=== PATIENT | male | born 1935 | race Caucasian/White ===

== ENCOUNTER 2021-01-09 16:12 | Outpatient (REF) | payer OTHER, MEDICAID, SELFPAY ==
[2021-01-09 17:56] LABS: Syphilis Screen Nonreactive (Nonreactive)
[2021-01-09 18:02] LABS: Vitamin B12 314 pg/mL (200-900)
[2021-01-10 17:16] LABS: Lyme Abs Screen <0.90 index
== END 2021-01-09 16:13 | disposition home or self-care (01) ==
LOC: HO.LAB 16:12
PROVIDERS: Visit Provider Psychiatry & Neurology Neurology
DX: G30.9 Alzheimer's disease, unspecified (principal)
CPT/HCPCS: 36415; 82607; 86617; 86618; 86780

== ENCOUNTER 2021-01-18 15:55 | Outpatient (REF) | payer OTHER, MEDICAID, SELFPAY ==
--- NOTE | ~2021-01-18 | MR_ITS ---
EXAMINATION: MR BRAIN WITHOUT CONTRAST CLINICAL INFORMATION: Alzheimer's dementia. COMPARISON: None available. TECHNIQUE: MRI of the brain was obtained using routine sequences without contrast. FINDINGS: No focal restricted diffusion is demonstrated to suggest acute or subacute cerebral ischemia. Regions of chronic encephalomalacia of the right frontoparietal lobes, right del real radiata, and right-sided deep nuclei. Peripheral susceptibility artifact consistent with hemosiderin staining in these regions. Exvacuodilatation of the right lateral ventricle. Wallerian degeneration of the right midbrain/maritza. No evidence of acute hemorrhagic products on heme-sensitive imaging. Scattered periventricular, deep white matter, and brainstem T2 FLAIR hyperintensities consistent with moderate underlying microangiopathy. Proportional prominence of the ventricles and sulcal spaces without evidence of obstructive hydrocephalus. No abnormal mass effect. No midline shift. Normal appearance of the pituitary gland. Normal positioning of the cerebellar tonsils. Normal arterial and venous vascular flow voids are present. Normal, homogeneous marrow signal. Mild mucosal thickening of the paranasal sinuses. No signal abnormalities within the mastoids. Bilateral lens extractions. Bilateral buphthalmos. MR/MR head/brain wo con IMPRESSION: 1. No acute intracranial abnormalities. 2. Chronic encephalomalacia of the right frontoparietal lobes, del real radiata, and deep nuclei. 3. Moderate underlying microangiopathy and generalized cerebral volume loss.
== END 2021-01-18 15:56 | disposition home or self-care (01) ==
LOC: HO.MRI 15:55
PROVIDERS: Visit Provider Psychiatry & Neurology Neurology
DX: G30.9 Alzheimer's disease, unspecified (principal); G93.89 Other specified disorders of brain; I73.9 Peripheral vascular disease, unspecified
CPT/HCPCS: 70551

== ENCOUNTER 2021-12-16 12:41 | Emergency (ER) | payer OTHER, MEDICAID, SELFPAY ==
--- NOTE | ~2021-12-16 | XR_ITS ---
EXAMINATION: XR CHEST CLINICAL INFORMATION: Stroke COMPARISON: None TECHNIQUE: Frontal view of the chest was obtained. FINDINGS: Cardiac silhouette is at the upper limits of normal in size. Atherosclerotic disease of the aortic arch. Hypoinflated lungs. Subtle linear opacity left lung base is most suggestive of atelectasis. No lobar consolidation. No pleural effusion or pneumothorax. XR/XR chest 1V IMPRESSION: Hypoinflated lungs with suspected subtle left basilar atelectasis.
--- NOTE | ~2021-12-16 | CT_ITS ---
EXAMINATION: CT HEAD WITHOUT CONTRAST (STROKE PROTOCOL) CLINICAL INFORMATION: Stroke protocol. COMPARISON: MRI of January 18, 2021 TECHNIQUE: Contiguous axial imaging was performed from the skull base to vertex without intravenous administration of contrast. This CT examination was performed using dose optimization techniques as appropriate, variously including the following: *Automated exposure control *Adjustment of mA and/or kV according to patient size (this includes techniques or standardized protocols for targeted exams where dose is matched to indication/reason for exam; i.e. extremities or head) *Use of iterative reconstruction technique DLP: 695 mGy-cm FINDINGS: No intracranial hemorrhage identified. No abnormal extra-axial fluid collection. No significant mass effect or midline structure shift is seen. Guzman to white matter interface is maintained. 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 There is a large amount of periventricular white matter low density consistent with microangiopathy which extends into the centrum semiovale right greater than left. This may be associated with an old right frontal lobe infarct. There is prominence of ventricles, sulci, and cisterns consistent with generalized atrophy. CT/CT head for stroke IMPRESSION: No acute intracranial pathology. Multiple stable ischemic findings. This critical result was discussed with ZAIDA Pruitt at 1:15 PM hours on December 16, 2021. It was ascertained that the content and urgency of the report was understood at the time of direct communication.
--- NOTE | 2021-12-16 12:50 | ECG_ITS ---
Test Reason : fall Blood Pressure : / mmHG Vent. Rate : 066 BPM Atrial Rate : 066 BPM P-R Int : 144 ms QRS Dur : 088 ms QT Int : 378 ms P-R-T Axes : 044 028 022 degrees QTc Int : 396 ms Normal sinus rhythm Normal ECG No previous ECGs available Referred By: Iraida Garibay Electronically Signed By:MADISON HEREDIA
[2021-12-16 12:55] VITALS: BP 144/78; PULSE 64; RESP 17; TEMP 36.9; O2SAT 98; BMI 22.5
[2021-12-16 13:09] LABS: ~PT, ~INR - Anti Coag Clinic 1.1 (0.9-1.1)
[2021-12-16 13:11] LABS: Glucose, Whole Blood 84 mg/dL (60-115)
[2021-12-16 13:26] LABS: MANUAL DIFF FLAG NO
[2021-12-16 13:48] LABS: Basophils Absolute Auto 0.1 X10*3/uL (0.0-0.2); Basophils Percent Auto 0.7 % (0-2); Eosinophils Absolute Auto 0.1 X10*3/uL (0.0-0.4); Eosinophils Percent Auto 1.6 % (0-4); Hematocrit 44.1 % (42.0-52.0); Hemoglobin 14.4 g/dl (14.0-18.0); Imm Gran Abs Auto 0.02 X10*3/uL (0.00-0.03); Imm Gran Pct Auto 0.3 % (0.0-0.4); Lymphocytes Absolute Auto 1.1 X10*3/uL (1.2-4.9); Lymphocytes Percent Auto 15.4 % (20-40); Mean Corpuscular HGB Conc 32.7 g/dl (31.0-36.0); Mean Corpuscular Hemoglobin 28.6 pg (27.0-33.0); Mean Corpuscular Volume 87.5 fL (80.0-98.0); Mean Platelet Volume 10.8 fL (9.4-12.4); Monocytes Absolute Auto 0.7 X10*3/uL (0.1-1.2); Monocytes Percent Auto 9.8 % (2-11); Neutrophils Absolute Auto 5.3 x10*3/uL (2.0-8.3); Neutrophils Percent Auto 72.2 % (45-73); Platelet Count 249 X10*3/uL (160-400); Red Blood Count 5.04 X10*6/uL (4.60-5.80); Red Cell Distribution Width 14.5 % (11.0-16.0); White Blood Count 7.3 X10*3/uL (4.8-10.8)
[2021-12-16 13:50] LABS: Anion Gap 15 (12-20); Blood Urea Nitrogen 16 mg/dL (9-16); Calcium 8.7 mg/dL (8.4-10.2); Carbon Dioxide 24 mmol/L (22-29); Chloride 106 mmol/L (96-108); Creatinine Clr Calc Pharmacy 41.8; Estimated Glomerular Filt Rate > 60; Glucose Random 91 mg/dL (60-115); Potassium 4.5 mmol/L (3.3-5.1); Sodium 140 mmol/L (135-145)
[2021-12-16 13:53] LABS: COVID-19 Test Negative (Negative)
[2021-12-16 13:54] LABS: Prothrombin Time 11.7 SEC (10.0-13.1)
[2021-12-16 13:56] LABS: Troponin-I High Sensitivity < 3.5 ng/L (<3.5-35.0)
[2021-12-16 13:57] LABS: Partial Thromboplastin Time 34.4 SEC (26.0-36.4); Stroke Lab Use COMPLETE
--- NOTE | 2021-12-16 14:17 | ED_ITS ---
HPI - Neuro Symptoms/Deficit General Chief Complaint: Stroke Stated Complaint: STROKE ALERT,NEW CONFUSION,H/O STROKE 2WKS AGO Time Seen by Provider: 12/16/21 12:49 Source: patient, family (Son) and EMS Mode of arrival: EMS Limitations: no limitations History of Present Illness HPI Narrative: 86-year-old male came in for evaluation of stroke. Presented by ambulance for feeling dizzy and passed out last night, patient giving different history, patient's symptoms started since last night, wake up in the morning feeling slightly dizzy but now is improving, no chest pain, no SOB. Patient has no neurological deficit except for left facial droop the patient been having it for many years. Son at the bedside providing more history for the patient, patient is known to have dementia and he does not do well when hospitalized because of the dementia he gets very anxious. 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 Patient is scheduled to see Dr. Farr in a few weeks and PCP. Related Data Home Medications Medication Instructions Recorded Confirmed aspirin 81 mg chewable tablet 1 tab PO DAILY 12/16/21 12/16/21 atorvastatin 80 mg tablet 1 tab PO DAILY 12/16/21 12/16/21 famotidine 40 mg tablet 1 tab PO DAILY 12/16/21 12/16/21 fluoxetine 10 mg capsule 1 cap PO DAILY 12/16/21 12/16/21 olanzapine 2.5 mg tablet 1 tab PO DAILY 12/16/21 12/16/21 quetiapine 25 mg tablet 0.5 tab PO DAILY PRN Agitation 12/16/21 12/16/21 Allergies Allergy/AdvReac Type Severity Reaction Status Date / Time No Known Allergies Allergy Verified 12/16/21 12:50 Review of Systems Review of Systems: All other systems are reviewed and are negative Constitutional: Reports as per HPI and Reports no additional constitutional complaints Eyes: Reports as per HPI and Reports no additional eye complaints Reports system reviewed and no additional complaints, except as documented Cardiovascular: Reports as per HPI and Reports no additional cardiovascular complaints Respiratory: Reports as per HPI and Reports no additional respiratory complaints Gastrointestinal: Reports as per HPI and Reports no additional gastrointestinal complaints Genitourinary: Reports no additional female genitourinary complaints Musculoskeletal: Reports no additional musculoskeletal complaints Skin/Breast: Reports system reviewed and no additional complaints, except as docu Psychiatric: Reports no additional psychiatric complaints Endocrine: Reports no additional endocrine complaints Hematologic/Lymphatic: Reports no additional hematologic/lymphatic complaints Allergic/Immunologic: Reports no additional allergic/immunologic complaints Reports system reviewed and no additional complaints, except as documented and Reports Abnormal speech present FOR[facility]LY [facility], [facility] Social History Social History Advance Directives: Yes Advance Directives on File: Yes Advance Directives Date on File: 12/16/21 Physical Exam Vital Signs: Vital Signs: Last Vital Signs Temp 98.4 F 12/16/21 12:55 Pulse 64 12/16/21 12:55 Resp 17 12/16/21 12:55 BP 144/78 H 12/16/21 12:55 Pulse Ox 98 12/16/21 12:55 O2 Del Method 12/16/21 12:55 BMI result Body Mass Index 22.5 Course Course Course Narrative: 86-year-old male with history of TIA had a recent workup at [facility] reportedly by son patient had blockage in both carotid arteries but no definitive plan to have surgical intervention at this point, no symptoms now, unremarkable CT, able to ambulate steady in the emergency room without concern, as per son patient develops severe anxiety and worsening of his dementia if he get admitted, patient has appointment with his neurologist next week will discharge. MDM - Neuro Symptoms/Deficit Lab Data Attestation: I reviewed the patient's lab results. Result diagrams: 12/16/21 13:19 12/16/21 13:19 Labs: Lab Results 12/16/21 12/16/21 12/16/21 Range/Units 13:01 13:04 13:19 WBC 7.3 (4.8-10.8) X10*3/uL RBC 5.04 (4.60-5.80) X10*6/uL Hgb 14.4 (14.0-18.0) g/dl Hct 44.1 (42.0-52.0) % MCV 87.5 (80.0-98.0) fL MCH 28.6 (27.0-33.0) pg MCHC 32.7 (31.0-36.0) g/dl RDW 14.5 (11.0-16.0) % Plt Count 249 (160-400) X10*3/uL MPV 10.8 (9.4-12.4) fL Immature Gran % (Auto) 0.3 (0.0-0.4) % Neut % (Auto) 72.2 (45-73) % Lymph % (Auto) 15.4 L (20-40) % [place] % (Auto) 9.8 (2-11) % Eos % (Auto) 1.6 (0-4) % Baso % (Auto) 0.7 (0-2) % Lymph # (Auto) 1.1 L (1.2-4.9) X10*3/uL [place] # (Auto) 0.7 (0.1-1.2) X10*3/uL Eos # (Auto) 0.1 (0.0-0.4) X10*3/uL Baso # (Auto) 0.1 (0.0-0.2) X10*3/uL Abs Immat Gran (auto) 0.02 (0.00-0.03) X10*3/uL Absolute Neuts (auto) 5.3 (2.0-8.3) x10*3/uL Absolute Nucleated RBC 0.000 (0.0-0.012) X10*3/uL Nucleated RBC % (auto) 0.0 (0.0-0.2) /100WBC PT (10.0-13.1) SEC Whole Blood PT 13.0 (11.1-13.5) sec INR (0.9-1.1) Whole Blood INR 1.1 (0.9-1.1) APTT (26.0-36.4) SEC Sodium (135-145) mmol/L Potassium (3.3-5.1) mmol/L Chloride (96-108) mmol/L Carbon Dioxide (22-29) mmol/L Anion Gap (12-20) BUN (9-16) mg/dL Creatinine (0.5-1.4) mg/dL Estim Creat Clear Calc Estimated GFR POC Glucose 84 (60-115) mg/dL Random Glucose (60-115) mg/dL Calcium (8.4-10.2) mg/dL Total Creatine Kinase (38-174) U/L Troponin I High Sens (<3.5-35.0) ng/L COVID-19 ([facility]) (Negative) COVID-19 Clin Com 12/16/21 12/16/21 12/16/21 Range/Units 13:19 13:19 13:19 WBC (4.8-10.8) X10*3/uL RBC (4.60-5.80) X10*6/uL Hgb (14.0-18.0) g/dl Hct (42.0-52.0) % MCV (80.0-98.0) fL MCH (27.0-33.0) pg MCHC (31.0-36.0) g/dl RDW (11.0-16.0) % Plt Count (160-400) X10*3/uL MPV (9.4-12.4) fL Immature Gran % (Auto) (0.0-0.4) % Neut % (Auto) (45-73) % Lymph % (Auto) (20-40) % [place] % (Auto) (2-11) % Eos % (Auto) (0-4) % Baso % (Auto) (0-2) % Lymph # (Auto) (1.2-4.9) X10*3/uL [place] # (Auto) (0.1-1.2) X10*3/uL Eos # (Auto) (0.0-0.4) X10*3/uL Baso # (Auto) (0.0-0.2) X10*3/uL Abs Immat Gran (auto) (0.00-0.03) X10*3/uL Absolute Neuts (auto) (2.0-8.3) x10*3/uL Absolute Nucleated RBC (0.0-0.012) X10*3/uL Nucleated RBC % (auto) (0.0-0.2) /100WBC PT 11.7 (10.0-13.1) SEC Whole Blood PT (11.1-13.5) sec INR 1.0 (0.9-1.1) Whole Blood INR (0.9-1.1) APTT 34.4 (26.0-36.4) SEC Sodium 140 (135-145) mmol/L Potassium 4.5 (3.3-5.1) mmol/L Chloride 106 (96-108) mmol/L Carbon Dioxide 24 (22-29) mmol/L Anion Gap 15 (12-20) BUN 16 (9-16) mg/dL Creatinine 1.10 (0.5-1.4) mg/dL Estim Creat Clear Calc 41.8 Estimated GFR > 60 POC Glucose (60-115) mg/dL Random Glucose 91 (60-115) mg/dL Calcium 8.7 (8.4-10.2) mg/dL Total Creatine Kinase 69 (38-174) U/L Troponin I High Sens < 3.5 (<3.5-35.0) ng/L COVID-19 ([facility]) (Negative) COVID-19 Clin Com 12/16/21 Range/Units 13:19 WBC (4.8-10.8) X10*3/uL RBC (4.60-5.80) X10*6/uL Hgb (14.0-18.0) g/dl Hct (42.0-52.0) % MCV (80.0-98.0) fL MCH (27.0-33.0) pg MCHC (31.0-36.0) g/dl RDW (11.0-16.0) % Plt Count (160-400) X10*3/uL MPV (9.4-12.4) fL Immature Gran % (Auto) (0.0-0.4) % Neut % (Auto) (45-73) % Lymph % (Auto) (20-40) % [place] % (Auto) (2-11) % Eos % (Auto) (0-4) % Baso % (Auto) (0-2) % Lymph # (Auto) (1.2-4.9) X10*3/uL [place] # (Auto) (0.1-1.2) X10*3/uL Eos # (Auto) (0.0-0.4) X10*3/uL Baso # (Auto) (0.0-0.2) X10*3/uL Abs Immat Gran (auto) (0.00-0.03) X10*3/uL Absolute Neuts (auto) (2.0-8.3) x10*3/uL Absolute Nucleated RBC (0.0-0.012) X10*3/uL Nucleated RBC % (auto) (0.0-0.2) /100WBC PT (10.0-13.1) SEC Whole Blood PT (11.1-13.5) sec INR (0.9-1.1) Whole Blood INR (0.9-1.1) APTT (26.0-36.4) SEC Sodium (135-145) mmol/L Potassium (3.3-5.1) mmol/L Chloride (96-108) mmol/L Carbon Dioxide (22-29) mmol/L Anion Gap (12-20) BUN (9-16) mg/dL Creatinine (0.5-1.4) mg/dL Estim Creat Clear Calc Estimated GFR POC Glucose (60-115) mg/dL Random Glucose (60-115) mg/dL Calcium (8.4-10.2) mg/dL Total Creatine Kinase (38-174) U/L Troponin I High Sens (<3.5-35.0) ng/L COVID-19 ([facility]BY) Negative (Negative) COVID-19 Clin Com See Note Imaging Data CT scan - head: Attestation: I personally reviewed and interpreted this imaging study as follows: Radiologist's impression: No acute intracranial pathology. ? Multiple stable ischemic findings. ? Chest x-ray: Attestation: I personally reviewed and interpreted this imaging study as follows: Radiologist's impression: Hypoinflated lungs with suspected subtle left basilar atelectasis. ECG Data Attestation: I personally reviewed and interpreted this ECG as follows: Interpretation: Normal sinus rhythm at 66 beats per minutes, normal axis deviation, normal intervals, no ST-T changes. Discharge Plan Discharge Clinical Impression: Dizziness Patient Disposition: Home, Self-Care Instructions: Dizziness (ED) Prescriptions: No Action quetiapine 25 mg tablet 0.5 tab PO DAILY PRN (Reason: Agitation) atorvastatin 80 mg tablet 1 tab PO DAILY famotidine 40 mg tablet 1 tab PO DAILY olanzapine 2.5 mg tablet 1 tab PO DAILY fluoxetine 10 mg capsule 1 cap PO DAILY aspirin 81 mg tablet,chewable 1 tab PO DAILY Referrals: Brooke Coy NP [Primary Care Provider] - Mike Farr MD [Physician] -
[2021-12-16 15:07] VITALS: BP 147/77; PULSE 70; RESP 16; TEMP 37; O2SAT 99
== END 2021-12-16 15:27 | disposition home or self-care (01) ==
PROVIDERS: Emergency Provider Emergency Medicine; PCP Nurse Practitioner Family
DX: R42 Dizziness and giddiness (principal); Z20.822 Contact with and (suspected) exposure to COVID-19; F03.90 Unspecified dementia, unspecified severity, without behavioral disturbance, psychotic disturbance, mood disturbance, and anxiety; F41.9 Anxiety disorder, unspecified; Z86.73 Personal history of transient ischemic attack (TIA), and cerebral infarction without residual deficits
CPT/HCPCS: 36415; 70450; 71045; 80048; 82550; 82947; 84484; 85025; 85610; 85730; 87635; 93005; 99284

== ENCOUNTER 2024-08-13 11:46 | Inpatient (IN) | payer MEDICARE, MEDICAID, SELFPAY ==
[2024-08-13] VITALS (8 sets, daily range): BP systolic 127–145; BP diastolic 56–71; PULSE 67–83; RESP 14–18; TEMP 36.8–37.2; O2SAT 93–97; BMI 28.8
--- NOTE | 2024-08-13 | ECG_ITS ---
Test Reason : GRES Blood Pressure : */* mmHG Vent. Rate : 79 BPM Atrial Rate : 79 BPM P-R Int : 142 ms QRS Dur : 80 ms QT Int : 360 ms P-R-T Axes : 45 56 42 degrees QTcB Int : 412 ms Normal sinus rhythm Normal ECG When compared with ECG of 16-Dec-2021 13:15, No significant change was found Referred By: Generic ED Physician Electronically Signed By: NEGRO TEJEDA
--- NOTE | ~2024-08-13 | XR_ITS ---
CLINICAL HISTORY: fever Single view of the chest. COMPARISON: XR chest dated 08/13/24 at 14:22 EDT FINDINGS: Normal heart size. Atherosclerotic thoracic aorta. Calcified mediastinal lymph nodes. Low lung volumes. Bronchial wall thickening. No pleural effusion. No pneumothorax. No acute fracture. IMPRESSION: 1. Low lung volumes. 2. Bronchial wall thickening. Nonspecific finding can be seen with pulmonary edema or a multifocal infectious or inflammatory process. This document has been electronically signed by: Darwin Ornelas MD on 08/15/2024 16:58:08
--- NOTE | ~2024-08-13 | CT_ITS ---
EXAMINATION: CT CERVICAL SPINE WITHOUT CONTRAST CLINICAL INFORMATION: Injury. COMPARISON: None available. TECHNIQUE: Contiguous axial images through the cervical spine using 3 mm collimation with bone and soft tissue algorithm. Sagittal and coronal reformatted images acquired. This CT examination was performed using dose optimization techniques as appropriate, variously including the following: *Automated exposure control *Adjustment of mA and/or kV according to patient size (this includes techniques or standardized protocols for targeted exams where dose is matched to indication/reason for exam; i.e. extremities or head) *Use of iterative reconstruction technique DLP: 279.86 mGy centimeter. FINDINGS: Craniocervical junction is intact. Trabeculated sclerotic morphology pattern throughout the axial skeleton. Marginal osteophyte formation and subchondral cyst formation decreased intervertebral disc height at C5-6 and C6-7 levels. Facet joint hypertrophy C2-3 to C5-6. Grade 1 anterolisthesis C4-5. C1 is intact. C2 is intact. C3 is intact. Facet joint hypertrophy, bilaterally. C4 is intact. Left-sided facet joint hypertrophy. C5 is intact. Left-sided facet joint hypertrophy. C6 is intact. C7 is intact. No gross prevertebral compartment hematoma. Calcified plaques both carotic arteries. Atrophic/volume loss of the thyroid gland. Postsurgical changes in the right mastoid/petrous bone with a soft tissue attenuation in the residual right tympanic cavity. Soft tissue attenuation in the left tympanic cavity. Secretions within the piriform sinuses. CT/CT cervical spine wo IV con IMPRESSION: No acute fracture or trauma-related listhesis. Concerning multiple myeloma versus lymphoproliferative disorder. Postsurgical changes in the right petrous bone and soft tissue attenuations both tympanic cavities. Cholesteatoma cannot be excluded. Fleischner guidelines were followed. Electronically signed by: Steve Kaba MD 08/13/2024 02:21 PM EDT
--- NOTE | ~2024-08-13 | US_ITS ---
CLINICAL HISTORY: r o DVT Venous duplex ultrasound bilateral lower extremity Comparison: None Findings: The visualized deep veins are fully compressible with normal Doppler color flow and spectral tracings. No popliteal cyst. IMPRESSION: 1. Negative for bilateral lower extremity deep vein thrombosis. This document has been electronically signed by: Manish Kraus MD on 08/13/2024 22:32:44
--- NOTE | ~2024-08-13 | XR_ITS ---
EXAMINATION: XR CHEST CLINICAL INFORMATION: fall COMPARISON: December 16, 2021 TECHNIQUE: Frontal view of the chest was obtained. FINDINGS: Pulmonary reticular pattern. Prominence of the interstitial markings. No gross consolidation, pleural effusion or pneumothorax. Poor inspiration. Arty mediastinal silhouette size is normal. Calcification centered in the thoracic aorta. Degenerative changes in the right shoulder. XR/XR chest 1V IMPRESSION: Mild interstitial edema in the correct clinical settings. Atherosclerosis disease. Electronically signed by: Steve Kaba MD 08/13/2024 02:33 PM EDT
--- NOTE | ~2024-08-13 | XR_ITS ---
EXAMINATION: XR FEMUR, LEFT CLINICAL INFORMATION: fall, hx of surgery at site COMPARISON: None available. TECHNIQUE: AP and lateral views of the left femur were obtained. FINDINGS: No fracture or dislocation. No bone lesion. Coxa valgus. Mild degenerative arthritis in the left hip joint. Complete bony fusion of the left knee joint. No soft tissue abnormalities. XR/XR femur LT 2V IMPRESSION: No acute bony abnormalities. Electronically signed by: Norberto Ruffin MD 08/13/2024 02:43 PM EDT
--- NOTE | ~2024-08-13 | CT_ITS ---
EXAMINATION: CT HEAD WITHOUT CONTRAST CLINICAL INFORMATION: headstrike COMPARISON: December 17, 2019. TECHNIQUE: Contiguous axial imaging was performed from the skull base to vertex without intravenous administration of contrast. This CT examination was performed using dose optimization techniques as appropriate, variously including the following: *Automated exposure control *Adjustment of mA and/or kV according to patient size (this includes techniques or standardized protocols for targeted exams where dose is matched to indication/reason for exam; i.e. extremities or head) *Use of iterative reconstruction technique DLP: 694.04 mGy-cm FINDINGS: Bony calvarium is intact. Skull base is intact. No acute intracranial hemorrhage, mass effect, midline shift, hydrocephalus or herniation. Prominence of the extra-axial CSF spaces along the internal convexities. Prominence of the cerebral sulci, ventricles and perimesencephalic cisterns. Prior vascular insult right basal ganglia/external capsule and del real radiata resulting in volume loss and wallerian degeneration into the right mid brain. Bilateral multifocal patchy and confluent deep periventricular white matter hypodensities involving centrum semiovale and del real radiata. Vascular calcifications V4 segments of the vertebral arteries and the cavernous supracavernous segments both ICAs. 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 Multiple periapical hypodensities along the upper lumbar region of the maxilla and mandible and multiple dental cavities. CT/CT head/brain wo IV con IMPRESSION: No acute fracture, bony calvarium. No acute intracranial hemorrhage. Small vessel occlusive disease. Global cerebral atrophy. Prior vascular insult right MCA lenticular branches. Small chronic subdural hematomas along the hemicranial convexities measuring less than 4 mm cannot be entirely excluded. Poor dilatation with the multiple abscesses and dental cavities. Electronically signed by: Steve Kaba MD 08/13/2024 02:15 PM EDT
[2024-08-13 12:29] LABS: Appearance Urine Cloudy; Color Urine Yellow; Glucose Urine UA Negative (Negative); Leukocyte Esterase Urine Negative (Negative); Nitrite Urine Negative (Negative); PH 5.5 (5.0-9.0); Specific Gravity - Urine 1.025 (1.005-1.025); UMIC TRIGGER UACC YES; Urine Blood Large (3+) (Negative); Urine Ketones Trace mg/dL (Negative); Urine Protein 100 (2+) mg/dL (Neg-Trace)
--- NOTE | 2024-08-13 12:29 | MHC.EDTECH ---
Patient BIBA,changed into hospital attire,patient was incont of a large amount of urine, pt urinated 300MLS of yellow urine in urinal placed pt on the ticket speculator,vitals and EKG taken,labs and urine obtained and sent to lab,call mikael i9n reach
[2024-08-13 12:32] LABS: MANUAL DIFF FLAG NO
[2024-08-13 12:32] LABS: Bacteria Urine None Seen (None Seen); Hyaline Casts Urine 0-2 /LPF (0-2); WBC Urine 0-5 /HPF (0-5)
[2024-08-13 12:35] LABS: Basophils Percent Auto 0.4 % (0-2); Hematocrit 40.7 % (42.0-52.0); Hemoglobin 13.7 g/dl (14.0-18.0); Imm Gran Abs Auto 0.02 X10*3/uL (0.00-0.03); Imm Gran Pct Auto 0.2 % (0.0-0.4); Lymphocytes Absolute Auto 1.4 X10*3/uL (1.2-4.9); Lymphocytes Percent Auto 13.8 % (20-40); Mean Corpuscular HGB Conc 33.7 g/dl (31.0-36.0); Mean Corpuscular Hemoglobin 29.5 pg (27.0-33.0); Mean Corpuscular Volume 87.5 fL (80.0-98.0); Mean Platelet Volume 10.9 fL (9.4-12.4); Monocytes Absolute Auto 1.2 X10*3/uL (0.1-1.2); Monocytes Percent Auto 11.7 % (2-11); Neutrophils Absolute Auto 7.4 x10*3/uL (2.0-8.3); Neutrophils Percent Auto 73.9 % (45-73); Platelet Count 189 X10*3/uL (160-400); Red Blood Count 4.65 X10*6/uL (4.60-5.80); Red Cell Distribution Width 15.1 % (11.0-16.0)
[2024-08-13 12:48] LABS: Alanine Aminotransferase 49 U/L (0-40); Albumin Level 3.6 g/dL (3.5-5.0); Alkaline Phosphatase 99 U/L (39-117); Anion Gap 11 (12-20); Aspartate Amino Transferase 119 U/L (5-37); Bilirubin Total 0.7 mg/dL (0.0-1.0); Blood Urea Nitrogen 27 mg/dL (9-16); Calcium 8.9 mg/dL (8.4-10.2); Carbon Dioxide 27 mmol/L (22-29); Chloride 108 mmol/L (96-108); Creatinine Clr Calc Pharmacy 36.2; Estimated Glomerular Filt Rate > 60; Glucose Random 98 mg/dL (60-115); Magnesium 2.3 mg/dL (1.6-2.6); Potassium 3.8 mmol/L (3.3-5.1); Sodium 142 mmol/L (135-145); Total Protein 6.6 g/dL (6.5-8.0)
--- NOTE | 2024-08-13 13:35 | PC.NURSE ---
Pt. requesting pain medication and that pain patch he has on not working. notified.
[2024-08-13 13:55] LABS: Troponin-I High Sens Reflx 2hr 52.1 ng/L (<3.5-35.0)
[2024-08-13] MEDS: 0.9 % Sodium Chloride 1,000 ML 999 ML IV (14:25)
--- NOTE | 2024-08-13 14:53 | ED.GENADULT ---
HPI - General Adult General Chief complaint: Fall Stated complaint: UNWIT FALL/UNK WHEN,HIT HEAD,-THINNER,+CCOLLAR Time Seen by Provider: 08/13/24 12:59 Source: patient and family History of Present Illness ED Provider: Dann JACOBSEN narrative: 89-year-old with past medical history of dementia and stroke presenting for fall. Patient reportedly fell out of his bed last night and remained on the ground until he was found by MAIL OPENER this morning. Patient is unreliable historian however he is complaining of left leg pain. Patient does have history of surgery at this site and he was a child. Patient's son is at bedside and states there is over 40 hours the MAIL OPENER coverage during the week and he spends a great deal of time with his father as well. He is comfortable taking him home if there are no indications for admission. He is actively working to have patient placed in long-term care facility. He feels that patient is currently at baseline mentation. Related Data Home Medications ?Medication ?Instructions ?Recorded ?Confirmed aspirin 81 mg chewable tablet 1 tab PO DAILY 12/16/21 12/16/21 atorvastatin 80 mg tablet 1 tab PO DAILY 12/16/21 12/16/21 famotidine 40 mg tablet 1 tab PO DAILY 12/16/21 12/16/21 fluoxetine 10 mg capsule 1 cap PO DAILY 12/16/21 12/16/21 olanzapine 2.5 mg tablet 1 tab PO DAILY 12/16/21 12/16/21 quetiapine 25 mg tablet 0.5 tab PO DAILY PRN Agitation 12/16/21 12/16/21 Allergies Allergy/AdvReac Type Severity Reaction Status Date / Time No Known Allergies Allergy Verified 08/13/24 12:06 Review of Systems Review of Systems: Yes all other systems are reviewed and are negative REPLACED BY [facility] Social History Social History Smoked in Last 30 Days: No Use of substances other than those prescribed or required for medical reasons: No Advance Directives: Yes Advance Directives on File: Yes Advance Directives Date on File: 12/16/21 Do you have a plan to hurt others: No Plan Physical Exam ED Vital Signs: Vital Signs - 24 hr 08/13/24 12:04 08/13/24 12:14 08/13/24 14:00 Temperature 98.9 F 98.2 F Pulse Rate 74 79 67 Respiratory Rate 18 14 18 Blood Pressure 133/71 145/64 H Pulse Oximetry 93 94 95 Oxygen Delivery Method Room Air Room Air Room Air 08/13/24 16:00 Temperature Pulse Rate 76 Respiratory Rate 18 Blood Pressure Pulse Oximetry 95 Oxygen Delivery Method Room Air BMI result Body Mass Index 28.8 Well-appearing elderly male in no acute distress Head normocephalic and atraumatic No midline C-spine tenderness to palpation Lungs clear to auscultation bilaterally is unlabored breathing Normal S1-S2 regular rate rhythm Abdomen is soft nontender nondistended Left lower femur tenderness to palpation Medications Administered Discontinued Medications Generic Name Dose Route Start Last Admin Trade Name Freq PRN Reason Stop Dose Admin Sodium Chloride 1,000 mls @ 999 mls/hr 08/13/24 13:30 08/13/24 15:26 Ns IV 08/13/24 14:30 Infused .Q1H1M NATASHA Infusion Sodium Chloride 500 mls @ 500 mls/hr 08/13/24 15:45 08/13/24 17:03 Ns IV 08/13/24 16:44 Infused .Q1H NATASHA Infusion Medical Decision Making Medical Decision Making [facility] Narrative: 89-year-old male presents for fall with prolonged downtime - I am concerned for the following; rhabdo, fracture, head/neck trauma, electrolyte/metabolic disturbance - labs and imaging studies ordered My independent interpretation of labs and imaging: - stable H&H, no white count, elevated CK, mildly elevated LFTs - UA not concerning for UTI - EKG with normal sinus rhythm, no ST elevations, normal QTC - no obvious head bleed or cervical fracture on CT scan; radiology impression notes possible small chronic subdural and no acute cervical fracture - no obvious fracture and femur radiology impression notes no acute bony abnormalities Fluids ordered I am concerned for rhabdomyolysis and while can take 3-5 days for CK to begin to downtrend I wanted to attempt to obtain a down trend to help discharge patient however this did not occur therefore I spoke with the hospitalist who accepted him for admission Lab Data 08/13/24 12:28 08/13/24 12:28 Labs: Lab Results 08/13/24 08/13/24 08/13/24 Range/Units 12:18 12:28 13:22 WBC 10.0 (4.8-10.8) X10*3/uL RBC 4.65 (4.60-5.80) X10*6/uL Hgb 13.7 L (14.0-18.0) g/dl Hct 40.7 L (42.0-52.0) % MCV 87.5 (80.0-98.0) fL MCH 29.5 (27.0-33.0) pg MCHC 33.7 (31.0-36.0) g/dl RDW 15.1 (11.0-16.0) % Plt Count 189 (160-400) X10*3/uL MPV 10.9 (9.4-12.4) fL Immature Gran % (Auto) 0.2 (0.0-0.4) % Neut % (Auto) 73.9 H (45-73) % Lymph % (Auto) 13.8 L (20-40) % [place] % (Auto) 11.7 H (2-11) % Eos % (Auto) 0.0 (0-4) % Baso % (Auto) 0.4 (0-2) % Lymph # (Auto) 1.4 (1.2-4.9) X10*3/uL [place] # (Auto) 1.2 (0.1-1.2) X10*3/uL Eos # (Auto) 0.0 (0.0-0.4) X10*3/uL Baso # (Auto) 0.0 (0.0-0.2) X10*3/uL Abs Immat Gran (auto) 0.02 (0.00-0.03) X10*3/uL Absolute Neuts (auto) 7.4 (2.0-8.3) x10*3/uL Absolute Nucleated RBC 0.000 (0.0-0.012) X10*3/uL Nucleated RBC % (auto) 0.0 (0.0-0.2) /100WBC Sodium 142 (135-145) mmol/L Potassium 3.8 (3.3-5.1) mmol/L Chloride 108 (96-108) mmol/L Carbon Dioxide 27 (22-29) mmol/L Anion Gap 11 L (12-20) BUN 27 H (9-16) mg/dL Creatinine 1.02 (0.5-1.4) mg/dL Estim Creat Clear Calc 36.2 Estimated GFR > 60 Random Glucose 98 (60-115) mg/dL Calcium 8.9 (8.4-10.2) mg/dL Phosphorus 2.8 (2.7-4.5) mg/dL Magnesium 2.3 (1.6-2.6) mg/dL Total Bilirubin 0.7 (0.0-1.0) mg/dL AST 119 H (5-37) U/L ALT 49 H (0-40) U/L Alkaline Phosphatase 99 (39-117) U/L Total Creatine Kinase 4058 H (38-174) U/L Troponin I Hi Sens Base 52.1 H (<3.5-35.0) ng/L Troponin I Hi Sens 2 Hr (<3.5-35.0) ng/L Total Protein 6.6 (6.5-8.0) g/dL Albumin 3.6 (3.5-5.0) g/dL Urine Color Yellow Urine Appearance Cloudy Urine pH 5.5 (5.0-9.0) Ur Specific [place] 1.025 (1.005-1.025) Urine Protein 100 (2+) H (Neg-Trace) mg/dL Urine Glucose (UA) Negative (Negative) mg/dL Urine Ketones Trace (Negative) mg/dL Urine Blood Large (3+) H (Negative) Urine Nitrite Negative (Negative) Ur Leukocyte Esterase Negative (Negative) Urine RBC 6-10 H (0-2) /HPF Urine WBC 0-5 (0-5) /HPF Ur Squamous Epith Cells 3-5 (0-2) /HPF Urine Bacteria None Seen (None Seen) Hyaline Casts 0-2 (0-2) /LPF Influenza Type A (PCR) (Negative) Influenza Type B (PCR) (Negative) RSV RNA Qual (PCR) (Negative) SARS-CoV-2 RNA (RT-PCR) (Negative) 08/13/24 08/13/24 08/13/24 Range/Units 14:40 15:41 17:29 WBC (4.8-10.8) X10*3/uL RBC (4.60-5.80) X10*6/uL Hgb (14.0-18.0) g/dl Hct (42.0-52.0) % MCV (80.0-98.0) fL MCH (27.0-33.0) pg MCHC (31.0-36.0) g/dl RDW (11.0-16.0) % Plt Count (160-400) X10*3/uL MPV (9.4-12.4) fL Immature Gran % (Auto) (0.0-0.4) % Neut % (Auto) (45-73) % Lymph % (Auto) (20-40) % [place] % (Auto) (2-11) % Eos % (Auto) (0-4) % Baso % (Auto) (0-2) % Lymph # (Auto) (1.2-4.9) X10*3/uL [place] # (Auto) (0.1-1.2) X10*3/uL Eos # (Auto) (0.0-0.4) X10*3/uL Baso # (Auto) (0.0-0.2) X10*3/uL Abs Immat Gran (auto) (0.00-0.03) X10*3/uL Absolute Neuts (auto) (2.0-8.3) x10*3/uL Absolute Nucleated RBC (0.0-0.012) X10*3/uL Nucleated RBC % (auto) (0.0-0.2) /100WBC Sodium (135-145) mmol/L Potassium (3.3-5.1) mmol/L Chloride (96-108) mmol/L Carbon Dioxide (22-29) mmol/L Anion Gap (12-20) BUN (9-16) mg/dL Creatinine (0.5-1.4) mg/dL Estim Creat Clear Calc Estimated GFR Random Glucose (60-115) mg/dL Calcium (8.4-10.2) mg/dL Phosphorus (2.7-4.5) mg/dL Magnesium (1.6-2.6) mg/dL Total Bilirubin (0.0-1.0) mg/dL AST (5-37) U/L ALT (0-40) U/L Alkaline Phosphatase (39-117) U/L Total Creatine Kinase 4529 H 4574 H (38-174) U/L Troponin I Hi Sens Base (<3.5-35.0) ng/L Troponin I Hi Sens 2 Hr 47.3 H (<3.5-35.0) ng/L Total Protein (6.5-8.0) g/dL Albumin (3.5-5.0) g/dL Urine Color Urine Appearance Urine pH (5.0-9.0) Ur Specific [place] (1.005-1.025) Urine Protein (Neg-Trace) mg/dL Urine Glucose (UA) (Negative) mg/dL Urine Ketones (Negative) mg/dL Urine Blood (Negative) Urine Nitrite (Negative) Ur Leukocyte Esterase (Negative) Urine RBC (0-2) /HPF Urine WBC (0-5) /HPF Ur Squamous Epith Cells (0-2) /HPF Urine Bacteria (None Seen) Hyaline Casts (0-2) /LPF Influenza Type A (PCR) NEGATIVE (Negative) Influenza Type B (PCR) NEGATIVE (Negative) RSV RNA Qual (PCR) NEGATIVE (Negative) SARS-CoV-2 RNA (RT-PCR) NEGATIVE (Negative) Discharge Plan Discharge Clinical Impression: Rhabdomyolysis Qualifiers: Encounter type: initial encounter Patient Disposition: Admitted As Inpatient Print Language: Romanian
[2024-08-13 15:23] LABS: Influenza A PCR NEGATIVE (Negative); Influenza B PCR NEGATIVE (Negative); Resp Syncy Virus RNA Qual PCR NEGATIVE (Negative); SARS COV2 PCR INHOUSE NEGATIVE (Negative)
--- OUTSIDE RECORDS SUMMARY | 2024-08-13 15:29 | XMS_ITS | Clinical Summary ---
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 Name Role Phone Unavailable Primary Care Provider Unavailabl e Social History Tobacco Use Types Packs/Day Years Used Date Smoking Tobacco: Never Assessed Sex and Gender Information Value Date Recorded Sex Assigned at Not on file Legal Sex Male 11:56 AM EDT Gender Identity Not on file Sexual Orientation Not on file Plan of Treatment Health Maintenance Due Date Last Done Comments DTaP/Tdap/Td Vaccines (1 - Tdap) 1954 Pneumococcal Vaccines 50+ (1 of 1 - PCV) 1985 Zoster (Shingles) Vaccine (1 of 2) 1985 RSV Vaccine 60 years and old er and Patients (1 - 1-dose 75+ series) 2010 COVID-19 Vaccine ( - 2023-2 5 season) 2023 Hepatitis B Vaccines Aged Out No long er eligible based on patient's age to complete this topic
[2024-08-13 15:35] LABS: Reflex Trop? Y
[2024-08-13] MEDS: 0.9 % Sodium Chloride 500 ML IV (16:03)
[2024-08-13 16:05] LABS: zTroponin-I High Sen Reflex #2 47.3 ng/L (<3.5-35.0)
[2024-08-13 16:43] LABS: Phosphorus 2.8 mg/dL (2.7-4.5)
--- NOTE | 2024-08-13 20:37 | P.HPHOSP_ITS ---
History of Present Illness Date of Service: 08/13/24 Attending physician on admission: Devon Corbin Chief Complaint: fall Patient is an 89-year-old male with a past medical history significant for history stroke, dementia, CAD and mood disorder, presented to the ED after a fall. The downtime is unclear however it is suspected that he fell last night and was found by his HEAD OF ART this morning. The patient reported a head strike but no loss of consciousness. He was found on the floor and crawled to his bathroom. 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 He also has bruising on the right side of his head. The patient was unable to give me any history due to his dementia, I attempted to call the son for classification however he did not answer. The above history is obtained from the ED provider. Review of Systems 2 Review of Systems: Yes Unobtainable due to mental status PMFSH Medical History (Updated 08/13/24 @ 20:44 by Darlene Wright PA-C) Mood disorder CAD (coronary artery disease) History of CVA (cerebrovascular accident) Dementia Social History Smoked in Last 30 Days: No Use of substances other than those prescribed or required for medical reasons: No Advance Directives: Yes Advance Directives on File: Yes Advance Directives Date on File: 12/16/21 Do you have a plan to hurt others: No Plan Meds Allergies Allergy/AdvReac Type Severity Reaction Status Date / Time No Known Allergies Allergy Verified 08/13/24 12:06 Home Medications ?Medication ?Instructions ?Recorded ?Confirmed ?Last Taken ?Type aspirin 81 mg chewable tablet 1 tab PO DAILY 12/16/21 12/16/21 Unknown History atorvastatin 80 mg tablet 1 tab PO DAILY 12/16/21 08/13/24 Unknown History famotidine 40 mg tablet 1 tab PO DAILY 12/16/21 08/13/24 Unknown History mirtazapine 15 mg tablet 15 mg PO DAILY 08/13/24 08/13/24 Unknown History quetiapine 25 mg tablet 25 mg PO BEDTIME 08/13/24 08/13/24 Unknown History Physical Exam 2 Vital Signs and Narrative: Vital Signs: Last Vital Signs Temp 98.2 F 08/13/24 14:00 Pulse 76 08/13/24 16:00 Resp 18 08/13/24 16:00 BP 145/64 H 08/13/24 14:00 Pulse Ox 95 08/13/24 16:00 O2 Del Method Room Air 08/13/24 16:00 BMI result Body Mass Index 28.8 General: Alert, oriented to person but not place or time. does not answer questions appropriately. no acute distress Resp: CTA bilaterally CVS: S1, S2, RRR GI: +BS, NT, no distention Skin: Warm, dry Neuro: Cranial nerves II-XII grossly intact bilaterally. Motor grossly intact bilaterally Extremities: No LE edema Psych: does not answer questions appropriately Results Labs 08/13/24 12:28 08/13/24 12:28 Labs: Laboratory Results - last 24 hr 08/13/24 08/13/24 08/13/24 12:18 12:28 13:22 MCV 87.5 MCH 29.5 MCHC 33.7 RDW 15.1 Plt Count 189 MPV 10.9 Immature Gran % (Auto) 0.2 Neut % (Auto) 73.9 H Lymph % (Auto) 13.8 L [place] % (Auto) 11.7 H Eos % (Auto) 0.0 Baso % (Auto) 0.4 Lymph # (Auto) 1.4 [place] # (Auto) 1.2 Eos # (Auto) 0.0 Baso # (Auto) 0.0 Abs Immat Gran (auto) 0.02 Absolute Neuts (auto) 7.4 Absolute Nucleated RBC 0.000 Nucleated RBC % (auto) 0.0 Anion Gap 11 L Estim Creat Clear Calc 36.2 Estimated GFR > 60 Random Glucose 98 Calcium 8.9 Phosphorus 2.8 Magnesium 2.3 Total Bilirubin 0.7 AST 119 H ALT 49 H Alkaline Phosphatase 99 Total Creatine Kinase 4058 H Troponin I Hi Sens Base 52.1 H Troponin I Hi Sens 2 Hr Total Protein 6.6 Albumin 3.6 Urine Color Yellow Urine Appearance Cloudy Urine pH 5.5 Ur Specific [place] 1.025 Urine Protein 100 (2+) H Urine Glucose (UA) Negative Urine Ketones Trace Urine Blood Large (3+) H Urine Nitrite Negative Ur Leukocyte Esterase Negative Urine RBC 6-10 H Urine WBC 0-5 Ur Squamous Epith Cells 3-5 Urine Bacteria None Seen Hyaline Casts 0-2 Influenza Type A (PCR) Influenza Type B (PCR) RSV RNA Qual (PCR) SARS-CoV-2 RNA (RT-PCR) 08/13/24 08/13/24 08/13/24 14:40 15:41 17:29 MCV MCH MCHC RDW Plt Count MPV Immature Gran % (Auto) Neut % (Auto) Lymph % (Auto) [place] % (Auto) Eos % (Auto) Baso % (Auto) Lymph # (Auto) [place] # (Auto) Eos # (Auto) Baso # (Auto) Abs Immat Gran (auto) Absolute Neuts (auto) Absolute Nucleated RBC Nucleated RBC % (auto) Anion Gap Estim Creat Clear Calc Estimated GFR Random Glucose Calcium Phosphorus Magnesium Total Bilirubin AST ALT Alkaline Phosphatase Total Creatine Kinase 4529 H 4574 H Troponin I Hi Sens Base Troponin I Hi Sens 2 Hr 47.3 H Total Protein Albumin Urine Color Urine Appearance Urine pH Ur Specific [place] Urine Protein Urine Glucose (UA) Urine Ketones Urine Blood Urine Nitrite Ur Leukocyte Esterase Urine RBC Urine WBC Ur Squamous Epith Cells Urine Bacteria Hyaline Casts Influenza Type A (PCR) NEGATIVE Influenza Type B (PCR) NEGATIVE RSV RNA Qual (PCR) NEGATIVE SARS-CoV-2 RNA (RT-PCR) NEGATIVE Imaging Radiologist's Impressions: Impressions Chest X-Ray 08/13/24 13:10 IMPRESSION: Mild interstitial edema in the correct clinical settings. Atherosclerosis disease. Electronically signed by: Steve Kaba MD 08/13/2024 02:33 PM EDT RP Cervical Spine CT 08/13/24 13:32 IMPRESSION: No acute fracture or trauma-related listhesis. Concerning multiple myeloma versus lymphoproliferative disorder. Postsurgical changes in the right petrous bone and soft tissue attenuations both tympanic cavities. Cholesteatoma cannot be excluded. Fleischner guidelines were followed. Electronically signed by: Steve Kaba MD 08/13/2024 02:21 PM EDT RP Head CT 08/13/24 13:32 IMPRESSION: No acute fracture, bony calvarium. No acute intracranial hemorrhage. Small vessel occlusive disease. Global cerebral atrophy. Prior vascular insult right MCA lenticular branches. Small chronic subdural hematomas along the hemicranial convexities measuring less than 4 mm cannot be entirely excluded. Poor dilatation with the multiple abscesses and dental cavities. Electronically signed by: Steve Kaba MD 08/13/2024 02:15 PM EDT RP Femur X-Ray 08/13/24 13:38 IMPRESSION: No acute bony abnormalities. Electronically signed by: Norberto Ruffin MD 08/13/2024 02:43 PM EDT RP Assessment and Plan (1) Rhabdomyolysis: Qualifiers: Encounter type: initial encounter Status: Acute (2) Fall: Status: Acute (3) Elevated LFTs: Status: Acute (4) Abnormal CT of spine: Status: Acute Plan Patient is an 89-year-old male with a past medical history significant for history stroke, dementia, CAD and mood disorder, presented to the ED after a fall. Down time is unknown. Patient is unable to give history and son is not reachable. History given from ED provider. Rhabdomyolysis secondary to fall - WBC normal, vitals stable, no sign of active infection - UA negative - COIVD/flu/RSV negative - EKG normal - trop elevated x2 but flat, likely due to rhabdo - head CT with no acute fracture, bony calvarium. No acute intracranial hemorrhage. Small vessel occlusive disease. Global cerebral atrophy. Prior vascular insult right MCA. Small chronic subdural hematomas along the hemicranial convexities measuring less than 4 mm. Poor dilatation with multiple abscesses and dental cavities. - cervical spine CT without acute fracture or trauma related listhesis. Concerning multiple myeloma versus lymphoma proliferative disorder. Postsurgical changes in the right petrous bone and soft tissue attenuation in both tympanic cavities. Cholesteatoma can not be excluded. - chest x-ray negative - left femur x-ray negative for acute bony abnormalities - CPK 4529, 4527 after 1.5L NS in ED, continue LR 80ml/hr - check orthostatics - B LE venous dopplar to r/o DVT as downtime is unknown - failed bedside swallow with RN - PT/COLLEGE PHYSICS INSTRUCTOR eval - follow CPK and lytes elevated LFTs - likely secondary to rhabdo - follow CMP abnormal CT c-spine - cervical spine CT without acute fracture or trauma related listhesis. Concerning multiple myeloma versus lymphoma proliferative disorder. Postsurgical changes in the right petrous bone and soft tissue attenuation in both tympanic cavities. Cholesteatoma can not be excluded. - SPEP and serum immunofixation - heme/onc consult - cholesteatoma unlikley, pt not complaining of ear pain and no fever or leukocytosis dental abscesses/cavities - no leukocytosis, no fever, not complaining of tooth pain - f/u outpt with dentist Dementia/mood disorder - continue mirtazepine and quetiapine when appropriate CAD - continue statin when appropraite DNR/DNI per pt's son VTE prophy: lovenox Patient with unwitnessed fall for unknown period of time complicated by rhabdomyolysis, requiring admission for at least 2 midnights stay for IV fluids, further evaluation and monitoring. Quality Stroke Does the patient have a stroke diagnosis?: No VTE Prior VTE?: No VTE Risk Level:: Medical - moderate - high VTE Device Contraindication: Treatment Not Indicated VTE Drug Contraindication: N/A - Med Ordered
--- NOTE | 2024-08-13 20:44 | PHA.MEDREC ---
Addendum entered by Marcela Menchaca [facility] 08/13/24 22:13: Reviewed by [facility] Addendum entered by Ruma Aponte 08/13/24 22:09: Patient son called back and confirm med list with nurse. Updated med list with changes. Son confirmed Atorvastatin 80 mg QHS, Famotidine 40 mg QHS, Mitrazepine 15 mg QHS, and Quetiapine 25 QHS. Patient is not taking any Aspirin 81 mg. Addendum entered by Syed Ward, [facility] 08/13/24 20:54: MED REC CHECKED BY [facility] Original Note: Pharmacy Consult ? Medication Reconciliation Pharmacy has completed the medication reconciliation. Patient is AMS. Called contacts on file and left a message. Utilized claims to confirm med list. will update med rec if family calls back with any changes.
[2024-08-13] MEDS: Lactated Ringers 1,000 ML 80 ML IVCONT (21:33)
--- NOTE | 2024-08-13 21:40 | PC.NURSE ---
Attempted to try and do a swallow eval on pt. pt. quickly started coughing. Informed Darlene CERDA, whom is going to place NPO orders and speech eval.
[2024-08-13] MEDS: Enoxaparin Sodium 40 MG/0.4 ML SYRINGE SUBCUT (22:04)
--- NOTE | 2024-08-13 23:56 | PC.NURSE ---
Report taken from Dana CORONADO assumed care of pt at 2300. Pt alert confused at baseline secondary dementia. Skin pale warm and dry. VSS. LR infusing at 80ml/hr without difficulty. Male purwick in place. Awaiting bed assignment for admission, aware of plan of care. Will continue to monitor.
[2024-08-14] VITALS (8 sets, daily range): BP systolic 102–171; BP diastolic 55–84; PULSE 70–90; RESP 15–20; TEMP 36.3–37.1; O2SAT 92–95; BMI 24.6
[2024-08-14] MEDS: 0.9 % Sodium Chloride Flush 3 ML SYRINGE IVFLUSH ×3 (00:25→14:23)
--- NOTE | 2024-08-14 07:19 | PC.NURSE ---
Physical therapist found pt purewick on the floor,Camera placed in patient room,VMT notified ,no room available in VMT at this time ,will activate when space available
[2024-08-14] MEDS: Lactated Ringers 1,000 ML 80 ML IVCONT ×2 (10:17→22:40)
--- NOTE | 2024-08-14 10:41 | MHC.CM.PN ---
PATIENT UNABLE TO PARTICIPATE IN MEANINGFUL CONVERSATION. CALL TO HCP/SON, SILVINO, WHO STATES THAT PATIENT LIVES ALONE, AND HAS 42 HOURS OF CAREGIVER SERVICES IN THE HOME. SON PLANS TO TAKE MONTH OF SEPTEMBER OFF TO FIX PATIENT'S HOME AND SELL, TO PAY FOR LTC. HE IS AWARE BECAUSE PATIENT FELL AND CAME TO [facility], REFERRALS NEED TO BE MADE SILVINO STATES THAT HE HAS STARTED THE PLAN FOR LTC TO [facility], [facility], AND [facility]. SILVINO GIVES PERMISSION FOR REFERRALS TO START HERE. IMM DISCUSSED AND ORIGINAL TO BE MAILED TO SON AT ADDRESS ON FILE. RN FOR PATIENT RECEIVED A CALL FROM SON, WHO NOW SAYS HE WISHES TO TAKE PATIENT HOME EVEN IF THIS MEANS WE NEED 24 HOUR CARE . IMM 08/14 IN CHART HCP IN [facility].
--- NOTE | 2024-08-14 10:49 | MHC.CM.PN ---
PCP IS REPORTED TO BE MARCUS WHEELER, OF [facility].
--- NOTE | 2024-08-14 12:51 | MHC.SL.SWA ---
Speech Pathologist Impression: Risk of Aspiration, Oropharyngeal Dysphagia Risk of Aspiration Due to: Neurological Condition Reduced Cognition Dysphasia Diet Status: Upgrade from NPO, start on NDD2/HTL Liquid Consistency and Strategies for Safe Swallow: Liquid Intake Recommendation: Honey Thick Liquid Intake Strategies: Small Sips No Straws Solid Food Consistency: Dietary Recommendations: Grnd/Mech Altered (NDD2) Additional Modifications to Solid Foods: Patient w/ immediate wet, gurgly cough on trials of thin liquid given by teaspoon. He tolerated soft solids and thickened juice, presents with prolonged oral phase, slowed mastication, delayed swallow, incomplete laryngeal elevation, and a tendency to pocket food. Recommend GROUND/MECH ALTERED (NDD2) solids and HONEY THICK liquids, pills CRUSHED in PUREE. Liquids to be given via teaspoon or controlled cup sips only, avoid the use of straws. Give small bites, allow ample time for patient to chew and clear the oral cavity. Moisten food with sauces/gravies, check for any pocketing and clear residue with sips of liquid. Patient will need 1:1 assistance feeding. Oral Medication Intake: Crushed with Puree Please contact the pharmacy regarding appropriate crushable or liquid drug formulations that are available whenever modified delivery is recommended. Compensatory Strategies and Precautions to be Taken for Safe Swallow: Sitting Upright (90 deg) Double Swallow No Straw Small Bites and Sips Alternate Liquids/Solids Rate of Ingestion Change Oral Check Supervision While Eating and Drinking for Safe Swallow: Total Assistance (1:1) Swallowing Recommended Treatments: Compens. Strategy Educat. Recommendation for Speech: Inpatient Speech Therapy Timeline to reassess: PRN Sheet Manager Clinican/Clinical Fellow: No Supervisory Statement: I have reviewed and agree with the student/clinical fellow's documentation: N/A Speech Language Pathologist: Darshana Walker M.A., CCC-MOTORIZED SQUAD SERGEANT
--- NOTE | 2024-08-14 13:43 | P.PNIM_ITS ---
Subjective Subjective Date of Service: 08/14/24 Interval History: Seen and examined this morning Follow-up for fall, mild rhabdo pt with dementia, no oriented, not able to obtain history Refused vital signs and blood work this morning Review of Systems Unable to obtain review of systems Physical Exam 2 Vital Signs: Vital Signs: Last Vital Signs Temp 98.3 F 08/14/24 11:54 Pulse 70 08/14/24 11:54 Resp 16 08/14/24 11:54 BP 149/65 H 08/14/24 11:54 Pulse Ox 92 08/14/24 11:54 O2 Del Method Room Air 08/14/24 11:54 BMI result Body Mass Index 24.6 Const: Other: Currently patient comfortable and cooperative, sitting up in bed, answering some questions. Not oriented. Awake, alert HEENT: Other: attempted to examined mouth, patient would not open mouth Resp: Effort & Inspection: normal respiratory effort, able to speak in complete sentences, no respiratory distress and no use of accessory muscles Cardio: Rate: regular rate Neuro: Other: Grossly nonfocal, moving all extremities Extrem: General: Yes no pedal edema Objective Data Active Medications Acetaminophen (Acetaminophen 325 Mg Tablet) 975 mg PO Q6H PRN PRN Reason: Pain, Mild 1-3,fever,headache Calcium Carbonate (Calcium Carbonate 750 Mg Tab.Chew) 750 mg PO Q4H PRN PRN Reason: Heartburn Enoxaparin Sodium (Enoxaparin Sodium 40 Mg/0.4 Ml Syringe) 40 mg SUBCUT Q24H COUNT INCLUDES [facility] Last Admin: 08/13/24 22:04 Dose: 40 mg Documented By: TRACY Lactated Ringer's (Lr) 1,000 mls @ 80 mls/hr IVCONT .[id number] COUNT INCLUDES [facility] Last Admin: 08/14/24 10:17 Dose: 80 mls/hr Documented By: BILLY Magnesium Hydroxide (Milk Of Magnesia 30 Ml Oral.Susp) 30 ml PO DAILY PRN PRN Reason: Constipation Melatonin (Melatonin 3 Mg Tablet) 6 mg PO BEDTIME PRN PRN Reason: Insomnia Ondansetron HCl (Ondansetron Hcl 4 Mg/2 Ml Vial) 4 mg IVPUSH Q8H PRN PRN Reason: Nausea and Vomiting Oxycodone HCl (Oxycodone Hcl Immed Release 5 Mg Tablet) 5 mg PO Q6H PRN PRN Reason: Pain, Moderate(Pain Scale 4-6) Sodium Chloride (0.9 % Sodium Chloride Flush 3 Ml Syringe) 3 ml IVFLUSH QSHIFT [facility]AS[facility] Last Admin: 08/14/24 08:27 Dose: 3 ml Documented By: BILLY Labs 08/13/24 12:28 08/13/24 12:28 Labs: Laboratory Results - last 24 hr 08/13/24 08/13/24 08/13/24 12:28 13:22 14:40 Phosphorus 2.8 Total Creatine Kinase Troponin I Hi Sens Base 52.1 H Troponin I Hi Sens 2 Hr Influenza Type A (PCR) NEGATIVE Influenza Type B (PCR) NEGATIVE RSV RNA Qual (PCR) NEGATIVE SARS-CoV-2 RNA (RT-PCR) NEGATIVE 08/13/24 08/13/24 15:41 17:29 Phosphorus Total Creatine Kinase 4529 H 4574 H Troponin I Hi Sens Base Troponin I Hi Sens 2 Hr 47.3 H Influenza Type A (PCR) Influenza Type B (PCR) RSV RNA Qual (PCR) SARS-CoV-2 RNA (RT-PCR) Assessment and Plan (1) Dementia: Status: Acute (2) Rhabdomyolysis: Status: Acute Plan This is an 89-year-old male with a past medical history significant for history stroke, dementia, CAD and mood disorder, presented to the ED after a fall. Down time is unknown Rhabdomyolysis secondary to fall trop elevated x2 but flat, likely due to rhabdo trend cpk; pt refused labs today, will re-attempt this afternoon continue gentle IVF Fall, unwitnessed PT eval prior to d/c dysphagia failed bedside swallow with RN Seen by speech, recommended NDD 2 diet with honey thick liquids elevated LFTs likely secondary to rhabdo follow LFTs in am abnormal CT c-spine imaging Concerning multiple myeloma versus lymphoma proliferative disorder. SPEP and serum immunofixation heme/onc consult cholesteatoma unlikely, pt not complaining of ear pain and no fever or leukocytosis can consider outpatient f/u dental abscesses/cavities no leukocytosis, no fever, not reliable historian unable examine mouth due to lack of patient cooperation will start IV Zosyn, can be transitioned to oral Augmentin when able to consistently tolerate diet will need outpatient f/u with dentist Dementia/mood disorder continue mirtazepine and quetiapine CAD Hold statin for rhabdo/elevated LFTs DNR/DNI per pt's son VTE prophy: lovenox dispo: rec home with 12/11 care Patient requires ongoing inpatient stay for monitoring of LFTs and CPK, IV fluid, assessment of tolerating diet Quality Stroke Does the patient have a stroke diagnosis?: No VTE Prior VTE?: No VTE Risk Level:: Medical - moderate - high VTE Device Contraindication: Treatment Not Indicated VTE Drug Contraindication: N/A - Med Ordered
[2024-08-14] MEDS: Ampicillin Sodium/Sulbactam Na 3 GM in 0.9 % Sodium Chloride 100 ML IV ×2 (14:23→20:06)
[2024-08-14 15:49] LABS: Hematocrit 36.9 % (42.0-52.0); Hemoglobin 12.1 g/dl (14.0-18.0); Mean Corpuscular HGB Conc 32.8 g/dl (31.0-36.0); Mean Corpuscular Hemoglobin 28.9 pg (27.0-33.0); Mean Corpuscular Volume 88.1 fL (80.0-98.0); Mean Platelet Volume 11.1 fL (9.4-12.4); Platelet Count 180 X10*3/uL (160-400); Red Blood Count 4.19 X10*6/uL (4.60-5.80); Red Cell Distribution Width 15.1 % (11.0-16.0); White Blood Count 5.4 X10*3/uL (4.8-10.8)
[2024-08-14 16:15] LABS: Alanine Aminotransferase 47 U/L (0-40); Albumin Level 2.9 g/dL (3.5-5.0); Alkaline Phosphatase 80 U/L (39-117); Anion Gap 12 (12-20); Aspartate Amino Transferase 134 U/L (5-37); Bilirubin Total 0.7 mg/dL (0.0-1.0); Blood Urea Nitrogen 21 mg/dL (9-16); Carbon Dioxide 22 mmol/L (22-29); Chloride 112 mmol/L (96-108); Creatinine Clr Calc Pharmacy 38.7; Estimated Glomerular Filt Rate > 60; Glucose Random 127 mg/dL (60-115); Potassium 3.5 mmol/L (3.3-5.1); Sodium 142 mmol/L (135-145); Total Protein 5.5 g/dL (6.5-8.0)
[2024-08-14] MEDS: Famotidine 20 MG TABLET 40 MG PO (20:41)
[2024-08-14] MEDS: Mirtazapine 15 MG TABLET PO (20:41)
[2024-08-14] MEDS: Enoxaparin Sodium 40 MG/0.4 ML SYRINGE SUBCUT (20:41)
[2024-08-14] MEDS: QUEtiapine Fumarate 25 MG TABLET PO (20:41)
[2024-08-15] VITALS (9 sets, daily range): BP systolic 107–175; BP diastolic 54–83; PULSE 65–87; RESP 16–17; TEMP 36.3–38.7; O2SAT 88–92
[2024-08-15] MEDS: Ampicillin Sodium/Sulbactam Na 3 GM in 0.9 % Sodium Chloride 100 ML IV ×4 (02:00→19:49)
[2024-08-15 06:27] LABS: Hematocrit 37.8 % (42.0-52.0); Hemoglobin 12.5 g/dl (14.0-18.0); Mean Corpuscular HGB Conc 33.1 g/dl (31.0-36.0); Mean Corpuscular Hemoglobin 28.9 pg (27.0-33.0); Mean Corpuscular Volume 87.3 fL (80.0-98.0); Mean Platelet Volume 10.5 fL (9.4-12.4); Platelet Count 176 X10*3/uL (160-400); Red Blood Count 4.33 X10*6/uL (4.60-5.80); White Blood Count 5.9 X10*3/uL (4.8-10.8)
[2024-08-15 06:48] LABS: Alanine Aminotransferase 41 U/L (0-40); Anion Gap 15 (12-20); Aspartate Amino Transferase 114 U/L (5-37); Bilirubin Direct 0.2 mg/dL (0.0-0.5); Bilirubin Total 0.6 mg/dL (0.0-1.0); Blood Urea Nitrogen 17 mg/dL (9-16); Calcium 7.9 mg/dL (8.4-10.2); Carbon Dioxide 21 mmol/L (22-29); Chloride 112 mmol/L (96-108); Creatinine Clr Calc Pharmacy 39.7; Estimated Glomerular Filt Rate > 60; Glucose Random 100 mg/dL (60-115); Potassium 3.7 mmol/L (3.3-5.1); Sodium 144 mmol/L (135-145); Total Protein 5.6 g/dL (6.5-8.0)
[2024-08-15 07:18] LABS: Alkaline Phosphatase 81 U/L (39-117)
[2024-08-15] MEDS: Lactated Ringers 1,000 ML 80 ML IVCONT ×2 (10:54→23:21)
[2024-08-15] MEDS: Acetaminophen 325 MG TABLET 975 MG PO (12:39)
--- NOTE | 2024-08-15 14:28 | HO.PM.IMPN ---
Subjective Subjective Date of Service: 08/15/24 Interval History: Seen and examined this morning Follow-up for fall, mild rhabdo pt with dementia, no oriented, not able to obtain history Review of Systems Unable to obtain review of systems Physical Exam Vital Signs: Vital Signs: Last Vital Signs Temp 101.6 F H 08/15/24 13:39 Pulse 77 08/15/24 12:00 Resp 16 08/15/24 12:00 BP 154/70 H 08/15/24 12:00 Pulse Ox 88 L 08/15/24 12:00 O2 Del Method Room Air 08/15/24 12:00 BMI result Body Mass Index 24.6 Appearing in no acute distress lung sounds are clear to auscultation heart regular rate rhythm, clear S1, S2 positive bowel sounds, abdomen is soft, nontender neuro patient is alert x3, no focal deficits Objective Data Active Medications Acetaminophen (Acetaminophen 325 Mg Tablet) 975 mg PO Q6H PRN PRN Reason: Pain, Mild 1-3,fever,headache Last Admin: 08/15/24 12:39 Dose: 975 mg Documented By: CYNTHIA Acetaminophen (Acetaminophen Supp 650 Mg Supp.Rect) 650 mg [place] Q6H PRN PRN Reason: Fever Calcium Carbonate (Calcium Carbonate 750 Mg Tab.Chew) 750 mg PO Q4H PRN PRN Reason: Heartburn Enoxaparin Sodium (Enoxaparin Sodium 40 Mg/0.4 Ml Syringe) 40 mg SUBCUT Q24H [facility] Last Admin: 08/14/24 20:41 Dose: 40 mg Documented By: ROSA Famotidine (Famotidine 20 Mg Tablet) 40 mg PO BEDTIME [facility] Last Admin: 08/14/24 20:41 Dose: 40 mg Documented By: ROSA Lactated Ringer's (Lr) 1,000 mls @ 80 mls/hr IVCONT .[id number] [facility] Last Admin: 08/15/24 10:54 Dose: 80 mls/hr Documented By: CYNTHIA Ampicillin Sodium/Sulbactam (Sodium 3 gm/ Sodium Chloride) 100 mls @ 200 mls/hr IV Q6H [facility] Last Infusion: 08/15/24 14:09 Dose: Infused Documented By: CYNTHIA Magnesium Hydroxide (Milk Of Magnesia 30 Ml Oral.Susp) 30 ml PO DAILY PRN PRN Reason: Constipation Melatonin (Melatonin 3 Mg Tablet) 6 mg PO BEDTIME PRN PRN Reason: Insomnia Mirtazapine (Mirtazapine 15 Mg Tablet) 15 mg PO BEDTIME [facility] Last Admin: 08/14/24 20:41 Dose: 15 mg Documented By: ROSA Ondansetron HCl (Ondansetron Hcl 4 Mg/2 Ml Vial) 4 mg IVPUSH Q8H PRN PRN Reason: Nausea and Vomiting Oxycodone HCl (Oxycodone Hcl Immed Release 5 Mg Tablet) 5 mg PO Q6H PRN PRN Reason: Pain, Moderate(Pain Scale 4-6) Quetiapine Fumarate (Quetiapine Fumarate 25 Mg Tablet) 25 mg PO BEDTIME [facility] Last Admin: 08/14/24 20:41 Dose: 25 mg Documented By: ROSA Sodium Chloride (0.9 % Sodium Chloride Flush 3 Ml Syringe) 3 ml IVFLUSH QSHIFT [facility] Last Admin: 08/15/24 07:39 Dose: Not Given Documented By: CYNTHIA Non-Admin Reason: IV Running Labs 08/15/24 06:11 08/15/24 06:11 Labs: Laboratory Results - last 24 hr 08/14/24 08/15/24 15:19 06:11 MCV 88.1 87.3 MCH 28.9 28.9 MCHC 32.8 33.1 RDW 15.1 15.0 Plt Count 180 176 MPV 11.1 10.5 Absolute Nucleated RBC 0.000 0.000 Nucleated RBC % (auto) 0.0 0.0 Anion Gap 12 15 Estim Creat Clear Calc 38.7 39.7 Estimated GFR > 60 > 60 Random Glucose 127 H 100 Calcium 8.0 L D 7.9 L Total Bilirubin 0.7 0.6 Direct Bilirubin 0.2 AST 134 H 114 H ALT 47 H 41 H Alkaline Phosphatase 80 81 Total Creatine Kinase 2491 H Total Protein 5.5 L 5.6 L Albumin 2.9 L 3.0 L Assessment and Plan (1) Dementia: Status: Acute (2) Rhabdomyolysis: Status: Acute Plan 89-year-old male with a past medical history significant for history stroke, dementia, CAD and mood disorder, presented to the ED after a fall. Down time is unknown Fever check blood cx cxr, ua tylenol pr already on amp Rhabdomyolysis secondary to fall trop elevated x2 but flat, likely due to rhabdo continue gentle IVF Fall, unwitnessed PT eval prior to d/c dysphagia failed bedside swallow with RN Seen by speech, recommended NDD 2 diet with honey thick liquids elevated LFTs likely secondary to rhabdo follow LFTs in am abnormal CT c-spine imaging Concerning multiple myeloma versus lymphoma proliferative disorder. SPEP and serum immunofixation heme/onc consult cholesteatoma unlikely, pt not complaining of ear pain and no fever or leukocytosis can consider outpatient f/u dental abscesses/cavities no leukocytosis, no fever, not reliable historian unable examine mouth due to lack of patient cooperation will start IV Zosyn, can be transitioned to oral Augmentin when able to consistently tolerate diet will need outpatient f/u with dentist Dementia/mood disorder continue mirtazepine and quetiapine CAD Hold statin for rhabdo/elevated LFTs DNR/DNI per pt's son VTE prophy: regulo dispo: rec home with 12/11 care Patient requires ongoing inpatient stay for monitoring of LFTs and CPK, IV fluid, assessment of tolerating diet Quality Stroke Does the patient have a stroke diagnosis?: No VTE Prior VTE?: No VTE Risk Level:: Medical - moderate - high VTE Device Contraindication: Treatment Not Indicated VTE Drug Contraindication: N/A - Med Ordered
[2024-08-15 16:18] LABS: Appearance Urine Clear; Color Urine Yellow; Glucose Urine UA Negative (Negative); Leukocyte Esterase Urine Negative (Negative); Nitrite Urine Negative (Negative); PH 5.5 (5.0-9.0); Specific Gravity - Urine >= 1.030 (1.005-1.025); UMIC TRIGGER UACC YES; Urine Blood Large (3+) (Negative); Urine Ketones Trace mg/dL (Negative); Urine Protein 100 (2+) mg/dL (Neg-Trace)
[2024-08-15 16:20] LABS: Bacteria Urine None Seen (None Seen); Hyaline Casts Urine 0-2 /LPF (0-2); RBC Urine >20 /HPF (0-2); WBC Urine 0-5 /HPF (0-5)
[2024-08-15] MEDS: oxyCODONE HCl Immed Release 5 MG TABLET PO (18:10)
[2024-08-15] MEDS: Enoxaparin Sodium 40 MG/0.4 ML SYRINGE SUBCUT (20:37)
[2024-08-16] VITALS (7 sets, daily range): BP systolic 162–184; BP diastolic 77–79; PULSE 77–98; RESP 16–19; TEMP 36.1–36.8; O2SAT 89–92
[2024-08-16] MEDS: Ampicillin Sodium/Sulbactam Na 3 GM in 0.9 % Sodium Chloride 100 ML IV ×4 (01:57→20:24)
[2024-08-16 08:51] LABS: Hematocrit 37.9 % (42.0-52.0); Hemoglobin 12.4 g/dl (14.0-18.0); Mean Corpuscular HGB Conc 32.7 g/dl (31.0-36.0); Mean Corpuscular Volume 88.8 fL (80.0-98.0); Mean Platelet Volume 11.2 fL (9.4-12.4); Platelet Count 142 X10*3/uL (160-400); Red Blood Count 4.27 X10*6/uL (4.60-5.80); Red Cell Distribution Width 15.2 % (11.0-16.0); White Blood Count 5.5 X10*3/uL (4.8-10.8)
--- NOTE | 2024-08-16 08:52 | HO.PM.IMPN ---
Subjective Subjective Date of Service: 08/16/24 Review of Systems Follow up Rhabo/fall Confused and agitated at times Physical Exam Vital Signs: Vital Signs: Last Vital Signs Temp 97.8 F 08/16/24 07:32 Pulse 98 08/16/24 07:32 Resp 18 08/16/24 07:32 BP 176/79 H 08/16/24 07:32 Pulse Ox 90 L 08/16/24 07:32 O2 Del Method Nasal Cannula 08/16/24 07:32 O2 Flow Rate 2 08/16/24 07:32 BMI result Body Mass Index 24.6 Appearing in no acute distress lung sounds are clear to auscultation heart regular rate rhythm, clear S1, S2 positive bowel sounds, abdomen is soft, nontender neuro patient is alert Objective Data Active Medications Acetaminophen (Acetaminophen 325 Mg Tablet) 975 mg PO Q6H PRN PRN Reason: Pain, Mild 1-3,fever,headache Last Admin: 08/15/24 12:39 Dose: 975 mg Documented By: CYNTHIA Acetaminophen (Acetaminophen Supp 650 Mg Supp.Rect) 650 mg [place] Q6H PRN PRN Reason: Fever Calcium Carbonate (Calcium Carbonate 750 Mg Tab.Chew) 750 mg PO Q4H PRN PRN Reason: Heartburn Enoxaparin Sodium (Enoxaparin Sodium 40 Mg/0.4 Ml Syringe) 40 mg SUBCUT Q24H [facility] Last Admin: 08/15/24 20:37 Dose: 40 mg Documented By: ROSA Famotidine (Famotidine 20 Mg Tablet) 40 mg PO BEDTIME [facility] Last Admin: 08/15/24 21:24 Dose: Not Given Documented By: ROSA Non-Admin Reason: too sleepy Ampicillin Sodium/Sulbactam (Sodium 3 gm/ Sodium Chloride) 100 mls @ 200 mls/hr IV Q6H [facility] Last Admin: 08/16/24 08:01 Dose: 200 mls/hr Documented By: YAMIL Magnesium Hydroxide (Milk Of Magnesia 30 Ml Oral.Susp) 30 ml PO DAILY PRN PRN Reason: Constipation Melatonin (Melatonin 3 Mg Tablet) 6 mg PO BEDTIME PRN PRN Reason: Insomnia Mirtazapine (Mirtazapine 15 Mg Tablet) 15 mg PO BEDTIME [facility] Last Admin: 08/15/24 21:24 Dose: Not Given Documented By: ROSA Non-Admin Reason: too sleepy Ondansetron HCl (Ondansetron Hcl 4 Mg/2 Ml Vial) 4 mg IVPUSH Q8H PRN PRN Reason: Nausea and Vomiting Oxycodone HCl (Oxycodone Hcl Immed Release 5 Mg Tablet) 5 mg PO Q6H PRN PRN Reason: Pain, Moderate(Pain Scale 4-6) Last Admin: 08/15/24 18:10 Dose: 5 mg Documented By: CYNTHIA Quetiapine Fumarate (Quetiapine Fumarate 25 Mg Tablet) 25 mg PO BEDTIME [facility] Last Admin: 08/15/24 21:24 Dose: Not Given Documented By: ROSA Non-Admin Reason: too sleepy Sodium Chloride (0.9 % Sodium Chloride Flush 3 Ml Syringe) 3 ml IVFLUSH QSHIFT [facility] Last Admin: 08/16/24 08:02 Dose: Not Given Documented By: YAMIL Non-Admin Reason: IV Running Labs 08/16/24 08:42 08/16/24 08:42 Labs: Laboratory Results - last 24 hr 08/15/24 08/15/24 15:07 15:47 Hold Purple Top SEE NOTE Hold Yellow Top See Note Urine Color Yellow Urine Appearance Clear Urine pH 5.5 Ur Specific [place] >= 1.030 H Urine Protein 100 (2+) H Urine Glucose (UA) Negative Urine Ketones Trace Urine Blood Large (3+) H Urine Nitrite Negative Ur Leukocyte Esterase Negative Urine RBC >20 H Urine WBC 0-5 Ur Squamous Epith Cells 3-5 Urine Bacteria None Seen Hyaline Casts 0-2 Assessment and Plan (1) Dementia: Status: Acute (2) Rhabdomyolysis: Status: Acute Plan 89-year-old male with a past medical history significant for history stroke, dementia, CAD and mood disorder, presented to the ED after a fall. Down time is unknown Fever. Resolved blood cx pending cxr showing bronchial wall thickening, pulmonary edema versus multifocal infectious process BNP 489 ua negative tylenol pr already on Unasyn Rhabdomyolysis secondary to fall trop elevated x2 but flat, likely due to rhabdo continue gentle IVF Fall, unwitnessed PT eval prior to d/c Dysphagia failed bedside swallow with RN Seen by speech, recommended NDD2 diet with honey thick liquids Elevated LFTs likely secondary to rhabdo follow LFTs in am Abnormal CT c-spine imaging Concerning multiple myeloma versus lymphoma proliferative disorder. SPEP and serum immunofixation heme/onc consult Cholesteatoma Seen on imaging unlikely, pt not complaining of ear pain can consider outpatient f/u with ENT Dental abscesses/cavities not reliable historian unable examine mouth due to lack of patient cooperation On unasyn will need outpatient f/u with dentist Dementia/mood disorder continue mirtazepine and quetiapine CAD Hold statin for rhabdo/elevated LFTs DNR/DNI per pt's son VTE prophy: regulo dispo: rec home with 12/11 care Quality Stroke Does the patient have a stroke diagnosis?: No VTE Prior VTE?: No VTE Risk Level:: Medical - moderate - high VTE Device Contraindication: Treatment Not Indicated VTE Drug Contraindication: N/A - Med Ordered
[2024-08-16 09:08] LABS: Anion Gap 14 (12-20); Blood Urea Nitrogen 14 mg/dL (9-16); Calcium 7.6 mg/dL (8.4-10.2); Carbon Dioxide 23 mmol/L (22-29); Chloride 110 mmol/L (96-108); Creatinine Clr Calc Pharmacy 37.8; Estimated Glomerular Filt Rate > 60; Glucose Random 96 mg/dL (60-115); Potassium 4.2 mmol/L (3.3-5.1); Sodium 143 mmol/L (135-145)
[2024-08-16 09:09] LABS: Alanine Aminotransferase 34 U/L (0-40); Albumin Level 2.8 g/dL (3.5-5.0); Alkaline Phosphatase 68 U/L (39-117); Anion Gap 13 (12-20); Aspartate Amino Transferase 82 U/L (5-37); Bilirubin Total 0.6 mg/dL (0.0-1.0); Blood Urea Nitrogen 15 mg/dL (9-16); Calcium 7.7 mg/dL (8.4-10.2); Carbon Dioxide 25 mmol/L (22-29); Chloride 108 mmol/L (96-108); Creatinine Clr Calc Pharmacy 36.9; Estimated Glomerular Filt Rate > 60; Glucose Random 96 mg/dL (60-115); Potassium 4.1 mmol/L (3.3-5.1); Sodium 142 mmol/L (135-145); Total Protein 5.4 g/dL (6.5-8.0)
[2024-08-16 09:14] LABS: B Type Natriuretic Peptide 489 pg/mL (<100)
[2024-08-16] MEDS: Mirtazapine 15 MG TABLET PO (20:23)
[2024-08-16] MEDS: Famotidine 20 MG TABLET 40 MG PO (20:23)
[2024-08-16] MEDS: QUEtiapine Fumarate 25 MG TABLET PO (20:23)
[2024-08-16] MEDS: Enoxaparin Sodium 40 MG/0.4 ML SYRINGE SUBCUT (20:24)
[2024-08-16] MEDS: 0.9 % Sodium Chloride Flush 3 ML SYRINGE IVFLUSH (20:24)
[2024-08-17] MEDS: Ampicillin Sodium/Sulbactam Na 3 GM in 0.9 % Sodium Chloride 100 ML IV ×2 (01:51→07:18)
[2024-08-17 04:05] VITALS: BP 141/82; PULSE 48; RESP 14; TEMP 36.7; O2SAT 95
[2024-08-17] MEDS: 0.9 % Sodium Chloride Flush 3 ML SYRINGE IVFLUSH (07:18)
--- NOTE | 2024-08-17 08:09 | PC.NURSE ---
Patient is very aggressive, both verbally and physically, and uncooperative with care. This RN reported to bedside to detach IV antibiotics from patient. Patient started yelling and grabbing this RN and tubing. He yelled profanities and called this RN multiple derogatory names and stated Im going to kill you . He proceeded to pull at the IV tubing until it snapped. No injuries to RN or patient. IV still patent and intact at this time.
--- NOTE | 2024-08-17 08:59 | HO.PM.IMPN ---
Subjective Subjective Date of Service: 08/17/24 Review of Systems Follow up Rhabo/fall Confused and agitated at times Physical Exam Vital Signs: Vital Signs: Last Vital Signs Temp 98.0 F 08/17/24 04:05 Pulse 48 L 08/17/24 04:05 Resp 14 08/17/24 04:05 BP 141/82 H 08/17/24 04:05 Pulse Ox 95 08/17/24 04:05 O2 Del Method Nasal Cannula 08/17/24 04:05 O2 Flow Rate 3 08/17/24 04:05 BMI result Body Mass Index 24.6 Appearing in no acute distress LSCTA heart regular rate rhythm, clear S1, S2 positive bowel sounds, abdomen is soft, nontender neuro patient is alert Objective Data Active Medications Acetaminophen (Acetaminophen 325 Mg Tablet) 975 mg PO Q6H PRN PRN Reason: Pain, Mild 1-3,fever,headache Last Admin: 08/15/24 12:39 Dose: 975 mg Documented By: CYNTHIA Acetaminophen (Acetaminophen Supp 650 Mg Supp.Rect) 650 mg SD Q6H PRN PRN Reason: Fever Calcium Carbonate (Calcium Carbonate 750 Mg Tab.Chew) 750 mg PO Q4H PRN PRN Reason: Heartburn Enoxaparin Sodium (Enoxaparin Sodium 40 Mg/0.4 Ml Syringe) 40 mg SUBCUT Q24H [facility] Last Admin: 08/16/24 20:24 Dose: 40 mg Documented By: ROSA Famotidine (Famotidine 20 Mg Tablet) 40 mg PO BEDTIME [facility] Last Admin: 08/16/24 20:23 Dose: 40 mg Documented By: ROSA Magnesium Hydroxide (Milk Of Magnesia 30 Ml Oral.Susp) 30 ml PO DAILY PRN PRN Reason: Constipation Melatonin (Melatonin 3 Mg Tablet) 6 mg PO BEDTIME PRN PRN Reason: Insomnia Mirtazapine (Mirtazapine 15 Mg Tablet) 15 mg PO BEDTIME [facility] Last Admin: 08/16/24 20:23 Dose: 15 mg Documented By: ROSA Ondansetron HCl (Ondansetron Hcl 4 Mg/2 Ml Vial) 4 mg IVPUSH Q8H PRN PRN Reason: Nausea and Vomiting Oxycodone HCl (Oxycodone Hcl Immed Release 5 Mg Tablet) 5 mg PO Q6H PRN PRN Reason: Pain, Moderate(Pain Scale 4-6) Last Admin: 08/15/24 18:10 Dose: 5 mg Documented By: CYNTHIA Quetiapine Fumarate (Quetiapine Fumarate 25 Mg Tablet) 25 mg PO BEDTIME [facility] Last Admin: 08/16/24 20:23 Dose: 25 mg Documented By: ROSA Sodium Chloride (0.9 % Sodium Chloride Flush 3 Ml Syringe) 3 ml IVFLUSH QSHIFT [facility] Last Admin: 08/17/24 07:18 Dose: 3 ml Documented By: GENIE Labs 08/16/24 08:42 08/16/24 08:42 Labs: Laboratory Results - last 24 hr 08/16/24 08/16/24 08/16/24 08:42 08:42 08:42 Anion Gap 13 14 Estim Creat Clear Calc 36.9 37.8 Estimated GFR > 60 Random Glucose Calcium Total Bilirubin AST ALT Alkaline Phosphatase B-Natriuretic Peptide Total Protein Albumin 08/16/24 08/16/24 08/16/24 08:42 08:42 08:42 Anion Gap Estim Creat Clear Calc Estimated GFR > 60 Random Glucose 96 96 Calcium 7.7 L 7.6 L Total Bilirubin 0.6 AST 82 H ALT 34 Alkaline Phosphatase 68 B-Natriuretic Peptide 489 H Total Protein 5.4 L Albumin 2.8 L Microbiology Microbiology Results: Microbiology 08/15/24 15:07 Blood Culture - Preliminary Blood - Venous No growth after 24 hours. 08/15/24 15:07 Blood Culture - Preliminary Blood - Venous No growth after 24 hours. Assessment and Plan (1) Dementia: Status: Acute (2) Rhabdomyolysis: Status: Acute Plan 89-year-old male with a past medical history significant for history stroke, dementia, CAD and mood disorder, presented to the ED after a fall. Down time is unknown Fever. Resolved blood cx negative cxr showing bronchial wall thickening, pulmonary edema versus multifocal infectious process BNP 489 ua negative tylenol pr as needed already on Unasyn Rhabdomyolysis secondary to fall trop elevated x2 but flat, likely due to rhabdo s/p IVF Fall, unwitnessed PT eval> home with 24hrs care vs LTC Dysphagia failed bedside swallow with RN Seen by speech, recommended NDD2 diet with honey thick liquids Elevated LFTs likely secondary to rhabdo follow LFTs in am Abnormal CT c-spine imaging Concerning multiple myeloma versus lymphoma proliferative disorder. SPEP and serum immunofixation heme/onc consult Cholesteatoma Seen on imaging unlikely, pt not complaining of ear pain can consider outpatient f/u with ENT Dental abscesses/cavities not reliable historian unable examine mouth due to lack of patient cooperation s/p unasyn will need outpatient f/u with dentist Dementia/mood disorder continue mirtazepine and quetiapine CAD Hold statin for rhabdo/elevated LFTs DNR/DNI per pt's son VTE prophy: regulo dispo: rec home with 12/11 care Quality Stroke Does the patient have a stroke diagnosis?: No VTE Prior VTE?: No VTE Risk Level:: Medical - moderate - high VTE Device Contraindication: Treatment Not Indicated VTE Drug Contraindication: N/A - Med Ordered
--- NOTE | 2024-08-17 11:17 | P.DS_ITS ---
DS: Providers Provider Date of Service: 08/17/24 Date of admission: 08/13/24 20:23 Date of discharge: 08/17/24 Primary care physician: Alec Sierra [facility] DS: Diagnosis Discharge Diagnosis (1) Dementia: Status: Acute (2) Rhabdomyolysis: Status: Acute DS: Summary Hospital Course Hospital Course: History and physical as per admitting provider. Patient is an 89-year-old male with a past medical history significant for history stroke, dementia, CAD and mood disorder, presented to the ED after a fall. The downtime is unclear however it is suspected that he fell last night and was found by his PRESCRIPTION BENEFIT SPECIALIST this morning. The patient reported a head strike but no loss of consciousness. He was found on the floor and crawled to his bathroom. 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 He also has bruising on the right side of his head. The patient was unable to give me any history due to his dementia, I attempted to call the son for classification however he did not answer. The above history is obtained from the ED provider. 89-year-old man treated after an unwitnessed fall at home suffering from rhabdomyolysis. He had no acute trauma or injury. He was noted to have rhabdomyolysis and treated with IV fluids. He was noted to have mildly elevated troponin but flat x2 and this was likely secondary to the rhabdomyolysis. He does have dysphagia and had initially failed his bedside swallow, seen evaluated by speech therapy who recommended NDD 2 diet with honey thick liquids. He was noted to have elevated LFTs also likely secondary to the rhabdomyolysis. At 1 point during hospitalization he had developed a fever for blood cultures have remained negative, UA negative been he was treated with Unasyn for dental infection but fever subsided that same day and did not return. Blood cultures have remained negative. Abnormal CT c-spine imaging Concerning multiple myeloma versus lymphoma proliferative disorder. SPEP and serum immunofixation Discussed with Hematology, nothing to do Cholesteatoma Seen on imaging unlikely, pt not complaining of ear pain can consider outpatient f/u with ENT Dental abscesses/cavities not reliable historian unable examine mouth due to lack of patient cooperation s/p unasyn will need outpatient f/u with dentist Dementia/mood disorder continue mirtazepine and quetiapine CAD Continue statin Time Attestation Discharge Coordination Time (in mins): 40 Quality: Safe Use of Opioids Does Pt have an Active Cancer Diagnosis on the Problem List?: No Quality: Stroke Does the patient have a stroke diagnosis?: No Physical Exam Vital Signs: Vital Signs: Last Vital Signs Temp 98.0 F 08/17/24 04:05 Pulse 48 L 08/17/24 04:05 Resp 14 08/17/24 04:05 BP 141/82 H 08/17/24 04:05 Pulse Ox 95 08/17/24 04:05 O2 Del Method Nasal Cannula 08/17/24 04:05 O2 Flow Rate 3 08/17/24 04:05 BMI result Body Mass Index 24.6 Appearing in no acute distress head is normocephalic atraumatic eyes pupils are PERRLA sclera is anicteric mouth throat mucous membranes are intact and moist neck is supple no lymphadenopathy, no JVD noted lung sounds are clear to auscultation heart regular rate rhythm, clear S1, S2 positive bowel sounds, abdomen is soft, nontender neuro patient is alert x3, no focal deficits DS: Data Data Completed and Pending Labs on day of discharge: Preliminary micro results at discharge 08/15/24 15:07 Blood Culture - Preliminary Blood - Venous No growth after 24 hours. 08/15/24 15:07 Blood Culture - Preliminary Blood - Venous No growth after 24 hours. Discharge Plan Discharge Anticipated Discharge Date/Time: 08/17/24 11:14 Patient Disposition: Home Health Service Discharge Diagnosis: Fall Rhabdomyolysis Dysphagia Fever Dental abscess [facility]errals: [facility]Outside] - 3-5 Days ([facility] will call you to schedule home PT appointments) Alec Sierra FNP- [Primary Care Provider] - 1 Week Discharge Medications: Continued atorvastatin 80 mg tablet 80 mg PO BEDTIME famotidine 40 mg tablet 40 mg PO BEDTIME quetiapine 25 mg tablet 25 mg PO BEDTIME mirtazapine 15 mg tablet 15 mg PO BEDTIME Discharge Orders: Discharge Order (Routine); Ordered 08/17/24 Ordered By: Monique Encarnacion Diet: Mechanical ground diet Activity on Discharge: As tolerated Stand Alone Forms: Patient Portal Discharge page Print Language: Palestinian Care Plan Goals: Dysphasia Diet Status: Upgrade from NPO, start on NDD2/HTL Liquid Consistency and Strategies for Safe Swallow: Liquid Intake Recommendation: Honey Thick Liquid Intake Strategies: Small SipsNo Straws Solid Food Consistency: Dietary Recommendations: Grnd/Mech Altered (NDD2) Additional Modifications to Solid Foods: Patient w/ immediate wet, gurgly cough on trials of thin liquid given by teaspoon. He tolerated soft solids and thickened juice, presents with prolonged oral phase, slowed mastication, delayed swallow, incomplete laryngeal elevation, and a tendency to pocket food. Recommend GROUND/MECH ALTERED (NDD2) solids and HONEY THICK liquids, pills CRUSHED in PUREE. Liquids to be given via teaspoon or controlled cup sips only, avoid the use of straws. Give small bites, allow ample time for patient to chew and clear the oral cavity. Moisten food with sauces/gravies, check for any pocketing and clear residue with sips of liquid. Patient will need 1:1 assistance feeding. Oral Medication Intake: Crushed with Puree Please contact the pharmacy regarding appropriate crushable or liquid drug formulations that are available whenever modified delivery is recommended. Compensatory Strategies and Precautions to be Taken for Safe Swallow: Sitting Upright (90 deg) Double Swallow No Straw Small Bites and Sips Alternate Liquids/Solids Rate of Ingestion Change Oral Check Supervision While Eating and Drinking for Safe Swallow: Total Assistance (1:1) Health Concerns: Fall Rhabdomyolysis Dysphagia Fever Dental abscess Plan of Treatment: Follow up with primary care provider as needed Follow up with dentist for treatment of dental abscess Take all your medications as provided Assessment: See discharge summary Discharge Date/Time: 08/17/24 12:25
--- NOTE | 2024-08-17 11:21 | P.F2F_ITS ---
Service Date Service Date: 08/17/24 Encounter Date of encounter: 08/17/24 Reasons for Services Signs and symptoms assessed: Fall Rhabdomyolysis Reason for physical therapy: home safety and mobility Homebound: Leaving the home is medically contraindicated at this time without the asist of a device and/or another person due th the listed conditions above and below. Reason homebound: unsteady gait / fall risk and bedbound/chairbound Certification: Based on the above findings, I certify that this patient is confined to the home and needs intermittent custodial care, physical therapy and/or speech therapy, or continues to need occupational therapy. The patient is under my care, and I have initiated the establishment of the plan of care. The patient will be followed by a physician who will periodically review the plan of care. Time Spent With Patient Time: Total time managing care of this patient today ____ minutes.
--- NOTE | 2024-08-17 11:29 | MHC.CM.PN ---
Per MD rounds patient medically cleared for dc home w/ son, [employer] services and new PT services through [facility]. BLS transport scheduled for 12pm. Son aware and agreeable to plan. IMM delivered.
[2024-08-17 22:34] LABS: Prot Elec - Albumin 2.8 g/dL (3.8-4.8); Prot Elec - Alpha1 0.4 g/dL (0.2-0.3); Prot Elec - Alpha2 0.8 g/dL (0.5-0.9); Prot Elec - Beta 1 0.3 g/dL (0.4-0.6); Prot Elec - Beta 2 0.3 g/dL (0.2-0.5); Prot Elec - Gamma 0.8 g/dL (0.8-1.7); Prot Elec - Total Protein 5.4 g/dL (6.1-8.1)
[2024-08-18 11:33] LABS: IgA 244 mg/dL (70-320); IgG 855 mg/dL (600-1540); IgM 51 mg/dL (50-300)
== END 2024-08-17 12:25 | disposition home health service (06) | DRG 558 ==
LOC: HO.ED 18:31 → HO.EDOVER 20:34 → HO.S3 08-14 00:40
PROVIDERS: Physician Assistant Medical; Admitting Provider Physician Assistant; Emergency Provider Student in an Organized Health Care Education/Training Program; PCP Registered Nurse; Visit Provider Nurse Practitioner Acute Care
DX: M62.82 Rhabdomyolysis (principal); F03.90 Unspecified dementia, unspecified severity, without behavioral disturbance, psychotic disturbance, mood disturbance, and anxiety; R13.10 Dysphagia, unspecified; W19.XXXA Unspecified fall, initial encounter; Z66 Do not resuscitate; R93.7 Abnormal findings on diagnostic imaging of other parts of musculoskeletal system; R50.9 Fever, unspecified; I25.10 Atherosclerotic heart disease of native coronary artery without angina pectoris; H71.93 Unspecified cholesteatoma, bilateral; F39 Unspecified mood [affective] disorder; K04.7 Periapical abscess without sinus; Z86.73 Personal history of transient ischemic attack (TIA), and cerebral infarction without residual deficits; Z20.822 Contact with and (suspected) exposure to COVID-19; Z79.899 Other long term (current) drug therapy
CPT/HCPCS: 0241U; 36415; 70450; 71045; 72125; 73552; 80048; 80053; 80076; 81001; 82550; 82784; 83735; 83880; 84100; 84165; 84484; 85025; 85027; 86334; 87040; 92610; 93005; 93970; 99285; J0295; J1650; J7120

== ENCOUNTER → 2024-08-13 12:12 | Outpatient (BNV) | payer OTHER, MEDICAID, SELFPAY | PROVIDERS: Emergency Provider Student in an Organized Health Care Education/Training Program; Visit Provider Internal Medicine | DX: Z13.6 Encounter for screening for cardiovascular disorders (principal) | CPT/HCPCS: 93010 ==

== ENCOUNTER → 2024-08-13 13:05 | Outpatient (BNV) | payer OTHER, MEDICAID, SELFPAY | PROVIDERS: Emergency Provider Student in an Organized Health Care Education/Training Program; Visit Provider Radiology Diagnostic Radiology | DX: R22.43 Localized swelling, mass and lump, lower limb, bilateral (principal) | CPT/HCPCS: 70450; 71045; 72125; 73552; 93970 ==

== ENCOUNTER 2024-08-13 20:23 | Outpatient (BNV) | payer MEDICARE, MEDICAID, SELFPAY | END 2024-08-15 16:00 | PROVIDERS: Admitting Provider Physician Assistant; Emergency Provider Student in an Organized Health Care Education/Training Program; Visit Provider Radiology Diagnostic Radiology | DX: I70.0 Atherosclerosis of aorta (principal); I89.8 Other specified noninfective disorders of lymphatic vessels and lymph nodes | CPT/HCPCS: 71045 ==

== ENCOUNTER → 2024-08-13 20:23 | Outpatient (BNV) | payer MEDICARE, MEDICAID, SELFPAY | PROVIDERS: Admitting Provider Physician Assistant; Emergency Provider Student in an Organized Health Care Education/Training Program; Visit Provider Physician Assistant Medical | DX: F03.90 Unspecified dementia, unspecified severity, without behavioral disturbance, psychotic disturbance, mood disturbance, and anxiety (principal); M62.82 Rhabdomyolysis | CPT/HCPCS: 99223; 99232 ==

== ENCOUNTER 2024-08-17 19:26 | Emergency (ER) | payer MEDICARE, MEDICAID, SELFPAY ==
[2024-08-17 19:36] VITALS: BP 111/64; PULSE 82; O2SAT 94
[2024-08-17 19:51] VITALS: BP 142/66; PULSE 80; RESP 16; O2SAT 98; BMI 21.0
--- NOTE | 2024-08-17 20:25 | PC.NURSE ---
Patient BIBHever from home this evening after being discharge from [facility] inpatient at around noon today. Patient sent home via EMS. Family (son and [id number]) now at bedside stating they were surprised he was discharged today and he needs short term rehab . Family unaware of patients PT eval which was included in patient's DC packet. Copy of DC packet made for chart, original given back to family. SHAUNA Amaya made aware of patient's presence in dept. No provider has picked up patient up at this time.
--- NOTE | 2024-08-17 20:34 | MHC.CM.ED ---
Addendum entered by Eun Gilman 08/17/24 22:06: CM received consult from Dr. Casper. CM spoke with patient. He is a poor historian. He is very concerned about not having his shoes, as he has an elevated shoe and cannot ambulate without them. CM called and spoke with his daughter in law, Pamela, who is an COLLAR TURNER. She tells CM that her father in law was admitted to [facility] after a fall and rhabdo from 08/13-08/17. She states that there was a rapid decline in his mentation after his fall and during his recent hospitalization. She states 2 weeks ago at [facility], her father in law was conversing with family, appropriate, feeding himself and using his walker around the house. They use a wheelchair when out of the house. He was able to be alone overnight, with 42 hours of [facility] during the day. He has been eating a ground diet due to poor dentition for about 6 months and was able to eat independently. PT had recommended 12/11 care or LTC at this last hospitalization. She feels he was delirious due to his rhabdo and that he needs STR. She would like another PT assessment. Pt did have [facility] services at discharge, but patient was discharged today and did not meet with patient yet. Dr. Casper aware of above conversation with family. Pt will have PT evaluation in the morning. Pt will need his shoes for the evaluation. CM will need to call in the morning for shoes, as family was supposed to bring them, but did not.. Local referrals placed at family request. CM will follow for discharge planning. Addendum entered by Eun Gilman 08/17/24 20:43: Medical record review-speech therapy recommended ground diet, honey thick liquids, pills crushed in puree and 1:1 feeds. HCP is on file. HCP #1 Pamela Santiago ([phone]) and HCP #2 Donovan Santiago ([phone]). Original Note: CM completed medical record review, as patient has not yet been medically cleared. Pt was at [facility] from 08/13-08/17 for a fall and rhabdo. Pt has a hx of CAD, dementia, CVA and mood disorder. Pt lives alone. Has 42 hours of [facility] services. Pt was discharged with [facility] for home PT. Pt was seen by [facility] PT and they recommended 24/7 care or LTC, as patient was unable to follow directions. Pt is awaiting medical evaluation.
--- NOTE | 2024-08-17 20:56 | PC.NURSE ---
Son and daughter unable to stay, left their phone numbers if needed [facility] [phone] [phone]
--- NOTE | 2024-08-17 20:59 | ED_ITS ---
HPI - General Adult General Chief complaint: General Medical Stated complaint: TREATED FOR RHABDO AND GENRAL WEAKNESS Time Seen by Provider: 08/17/24 20:53 Source: patient and EMS Mode of arrival: EMS Limitations: other (poor historian) History of Present Illness ED Provider: AYAAN JACOBSEN narrative: 89 yo male from home with PMH of stroke, dementia, CAD and mood disorder, recent fall admission 08/13 and 08/17 - work up showed possible small chronic SDH, rhabdo with daily checks down to 2,000 on 08/16, abnormal CT c spine with possible proliferative disorder he was advised to go to LTC vs 12/11 care at home. Today family wanted to take him home. He came back tonight as family feels he needs STR - they state he is improving but could use STR. No new complaints patient states he has fine but is c/o losing a shoe. He is upset about his shoes. MD complaint: safety concern at home Onset (ago): day(s) Radiation: non-radiation Severity: moderate Relieving factors: none Exacerbating factors: none Associated symptoms: denies other symptoms Treatments prior to arrival: none Related Data Home Medications ?Medication ?Instructions ?Recorded ?Confirmed atorvastatin 80 mg tablet 80 mg PO BEDTIME 12/16/21 08/17/24 famotidine 40 mg tablet 40 mg PO BEDTIME 12/16/21 08/17/24 mirtazapine 15 mg tablet 15 mg PO BEDTIME 08/13/24 08/17/24 quetiapine 25 mg tablet 25 mg PO BEDTIME 08/13/24 08/17/24 Allergies Allergy/AdvReac Type Severity Reaction Status Date / Time No Known Allergies Allergy Verified 08/17/24 19:52 Review of Systems 2 Review of Systems: ROS unable to be obtained due to dementia [facility] Past Medical History Source: old records reviewed Medical History Mood disorder CAD (coronary artery disease) History of CVA (cerebrovascular accident) Dementia Social History Social History Household Members: Significant Other Housing: House Do you presently have visiting nurse or other home services: No Patient Tobacco Use Status: Never used Tobacco Smoked in Last 30 Days: No Use of substances other than those prescribed or required for medical reasons: No Advance Directives: Yes Advance Directives on File: Yes Advance Directives Date on File: 12/16/21 Do you have a plan to hurt others: No Plan Physical Exam ED Vital Signs: Vital Signs - 24 hr 08/19/24 13:31 08/19/24 18:52 08/19/24 22:03 Temperature 97.3 F 98.0 F 99.2 F Pulse Rate 74 78 82 Respiratory Rate 16 18 12 Blood Pressure 127/58 L 162/77 H 131/70 Pulse Oximetry 96 95 Oxygen Delivery Method Room Air Room Air Room Air 08/20/24 02:38 08/20/24 06:34 Temperature 97.4 F Pulse Rate 83 64 Respiratory Rate 17 15 Blood Pressure 137/62 Pulse Oximetry 96 92 Oxygen Delivery Method Room Air Room Air BMI result Body Mass Index 21.0 Appearance: Alert. Oriented to self No acute distress. Eyes: Pupils equal, round and reactive to light. ENT: Pharynx normal. atraumatic Neck: Normal inspection. Neck supple. CVS: Normal heart rate and rhythm. Pulses normal. Respiratory: No respiratory distress. Breath sounds normal. Abdomen: Soft and nontender. Skin: Skin warm and dry. Normal skin color. Normal skin turgor. Extremities: No lower extremity edema. No calf ttp Neuro: Oriented X 1. cannot really participate in exam at this time but moving all extremities, face symmetric Course Course Course Narrative: Time: 06:37 Date: 08/18/24 Provider: Christel Casper, DO Patient in physician observation for case management needs. No acute events reported overnight.? No current issues or complaints. VS stable. Patient is pending placement at facility/pending PT/CM eval. Will continue to monitor. 08/18/2024 12:20pm Mary Morgan PA-C ----> Observation continues. Spoke with the patient's daughter in law and reviewed possibility of multiple myeloma as well as other questions she had regarding the patient's previous visits / hospitalization. Plan remains the same - case management continues to follow. Time: 11:09 Date: 08/19/24 Provider: ZAIDA Lazaro Patient in physician observation for case management needs. No acute events reported overnight.? No current issues or complaints. VS stable. Patient is pending placement at facility- [facility] able to offer a bed per case management and is waiting insurance authorization. Will continue to monitor. Reevaluation(s) Reevaluation #1: Time: 08:34 Date: 08/20/24 Provider: ZAIDA Ortega I have reviewed all workup results obtained on 08/17/2024. No acute abnormality requiring intervention. Patient has been followed by case management. He will be discharged to [facility] this morning at 1030 for STR. No acute overnight events per nursing staff. Vitals are stable. Physician observation ended at 0836. Patient to be placed at a rehab facility. Medications Administered Generic Name Dose Route Start Last Admin Trade Name Freq PRN Reason Stop Dose Admin Atorvastatin Calcium 80 mg 08/17/24 22:30 08/19/24 21:46 Atorvastatin Calcium 80 Mg Tablet PO Not Given BEDTIME NATASHA Famotidine 40 mg 08/17/24 22:30 08/19/24 21:46 Famotidine 20 Mg Tablet PO 40 mg BEDTIME NATASHA Administration Mirtazapine 15 mg 08/17/24 22:30 08/19/24 21:46 Mirtazapine 15 Mg Tablet PO 15 mg BEDTIME NATASHA Administration Quetiapine Fumarate 25 mg 08/17/24 22:30 08/19/24 21:45 Quetiapine Fumarate 25 Mg Tablet PO 25 mg BEDTIME NATASHA Administration Medical Decision Making Medical Decision Making MDM Narrative: 89 yo male from home with PMH of stroke, dementia, CAD and mood disorder, recent fall admission 08/13 and 08/17 now here after family is requesting STR placement - no new medical complaints or trauma. He is just upset about his shoe being lost. At this time will obtain basic labs and case management consult. Differential Diagnosis Differential Diagnoses: The differential diagnosis associated with the presentation includes FTT, dehydration, delerium Admission/Observation Consideration of admission/observation: Escalation of care including admission/observation considered physician observation started at 924pm pending CM Consult Healthcare Provider Management of the patient was discussed with: Computer Operations Technician Lab Data [facility] Lab Attestation statement: I reviewed the patient's lab results. 08/17/24 21:40 08/17/24 21:40 Labs: Lab Results 08/17/24 08/18/24 Range/Units 21:40 09:38 WBC 5.2 (4.8-10.8) X10*3/uL RBC 4.21 L (4.60-5.80) X10*6/uL Hgb 12.2 L (14.0-18.0) g/dl Hct 36.0 L (42.0-52.0) % MCV 85.5 (80.0-98.0) fL MCH 29.0 (27.0-33.0) pg MCHC 33.9 (31.0-36.0) g/dl RDW 14.8 (11.0-16.0) % Plt Count 170 (160-400) X10*3/uL MPV 10.3 (9.4-12.4) fL Immature Gran % (Auto) Cancelled Neut % (Auto) Cancelled Lymph % (Auto) Cancelled Harrison % (Auto) Cancelled Eos % (Auto) Cancelled Baso % (Auto) Cancelled Lymph # (Auto) Cancelled Harrison # (Auto) Cancelled Eos # (Auto) Cancelled Baso # (Auto) Cancelled Abs Immat Gran (auto) Cancelled Absolute Neuts (auto) Cancelled Absolute Nucleated RBC 0.000 (0.0-0.012) X10*3/uL Nucleated RBC % (auto) 0.0 (0.0-0.2) /100WBC Neutrophils % (Manual) 64 (45-73) % Band Neutrophils % 2 L (3-5) % Lymphocytes % (Manual) 16 L (20-40) % Atypical Lymphs % (Man) 7 H (0-6) % Monocytes % (Manual) 8 (2-11) % Eosinophils % (Manual) 1 (0-4) % Blast Cells % (Manual) 2 % Abs Neuts (Manual) 3.4 (2.0-8.3) X10*3/uL Lymphocytes # (Manual) 0.8 L (1.2-4.9) X10*3/uL Atyp Lymphs # (Manual) 0.4 x10*3/uL Monocytes # (Manual) 0.4 (0.1-1.2) X10*3/uL Eosinophils # (Manual) 0.1 (0.0-0.4) X10*3/uL Blast Cells # 0.1 X10*3/uL Smudge Cells PRESENT Platelet Estimate NORMAL (NORMAL) Large Platelets PRESENT Plt Morphology Comment NOTED RBC Morphology NOTED Microcytosis 3+ (>30) /OIF Ovalocytes 1+ (5-14) /OIF Margarette Cells 3+ (>5) /OIF Schistocytes 3+ (>5) /OIF Smear Path Review SEE NOTE Sodium 142 (135-145) mmol/L Potassium 3.5 (3.3-5.1) mmol/L Chloride 108 (96-108) mmol/L Carbon Dioxide 26 (22-29) mmol/L Anion Gap 12 (12-20) BUN 15 (9-16) mg/dL Creatinine 0.78 (0.5-1.4) mg/dL Estim Creat Clear Calc 53.5 Estimated GFR > 60 Random Glucose 103 (60-115) mg/dL Calcium 7.8 L (8.4-10.2) mg/dL Magnesium 2.0 (1.6-2.6) mg/dL Total Bilirubin 0.7 (0.0-1.0) mg/dL Direct Bilirubin 0.3 (0.0-0.5) mg/dL AST 66 H (5-37) U/L ALT 31 (0-40) U/L Alkaline Phosphatase 67 (39-117) U/L Total Creatine Kinase 259 H (38-174) U/L Total Protein 5.7 L (6.5-8.0) g/dL Albumin 3.0 L (3.5-5.0) g/dL Influenza Type A (PCR) NEGATIVE (Negative) Influenza Type B (PCR) NEGATIVE (Negative) RSV RNA Qual (PCR) NEGATIVE (Negative) SARS-CoV-2 RNA (RT-PCR) NEGATIVE (Negative) Independent Historian Clinical information obtained from an independent historian. History obtained from or confirmed by: EMS and Other External Record Review External record reviewed: Inpatient record Discharge Plan Discharge Clinical Impression: Adult failure to thrive, White matter periventricular infarction, Physical deconditioning, Dementia Patient Disposition: Xfer Inpatient Rehab Fac Transfer Details: TO: [facility], [address],[place], Prescriptions: No Action atorvastatin 80 mg tablet 80 mg PO BEDTIME famotidine 40 mg tablet 40 mg PO BEDTIME quetiapine 25 mg tablet 25 mg PO BEDTIME mirtazapine 15 mg tablet 15 mg PO BEDTIME Referrals: [facility] [Outside] Brooke Coy MASTER COOK [Primary Care Provider] - Print Language: Malagasy
[2024-08-17 21:24] VITALS: BP 142/67; PULSE 79; RESP 20; O2SAT 93
[2024-08-17 21:46] LABS: Hemoglobin 12.2 g/dl (14.0-18.0); Mean Corpuscular HGB Conc 33.9 g/dl (31.0-36.0); Mean Corpuscular Volume 85.5 fL (80.0-98.0); Mean Platelet Volume 10.3 fL (9.4-12.4); Platelet Count 170 X10*3/uL (160-400); Red Blood Count 4.21 X10*6/uL (4.60-5.80); Red Cell Distribution Width 14.8 % (11.0-16.0); White Blood Count 5.2 X10*3/uL (4.8-10.8)
[2024-08-17 22:01] LABS: Alanine Aminotransferase 31 U/L (0-40); Alkaline Phosphatase 67 U/L (39-117); Anion Gap 12 (12-20); Aspartate Amino Transferase 66 U/L (5-37); Bilirubin Direct 0.3 mg/dL (0.0-0.5); Bilirubin Total 0.7 mg/dL (0.0-1.0); Blood Urea Nitrogen 15 mg/dL (9-16); Calcium 7.8 mg/dL (8.4-10.2); Carbon Dioxide 26 mmol/L (22-29); Chloride 108 mmol/L (96-108); Creatinine Clr Calc Pharmacy 53.5; Estimated Glomerular Filt Rate > 60; Glucose Random 103 mg/dL (60-115); Potassium 3.5 mmol/L (3.3-5.1); Sodium 142 mmol/L (135-145); Total Protein 5.7 g/dL (6.5-8.0)
[2024-08-17 22:30] LABS: Atypical Lymph Absolute Manual 0.4 x10*3/uL; Atypical Lymphs Percent Manual 7 % (0-6); Band Neutrophils Percent 2 % (3-5); Blast Percent 2 %; Blastocytes Absolute 0.1 X10*3/uL; Eosinophils Absolute Manual 0.1 X10*3/uL (0.0-0.4); Eosinophils Percent Manual 1 % (0-4); Lymphocytes Absolute Manual 0.8 X10*3/uL (1.2-4.9); Lymphocytes Percent Manual 16 % (20-40); Microcytosis 3+ (>30) /OIF; Monocytes Absolute Manual 0.4 X10*3/uL (0.1-1.2); Monocytes Percent Manual 8 % (2-11); Neutrophils Absolute Manual 3.4 X10*3/uL (2.0-8.3); Neutrophils Percent Manual 64 % (45-73); Platelet Estimate NORMAL (NORMAL); RBC Morphology NOTED
[2024-08-17 22:31] LABS: Burr Cells 3+ (>5) /OIF; Large Platelet PRESENT; Platelet Morphology Comment NOTED; Schistocytes 3+ (>5) /OIF
--- NOTE | 2024-08-17 22:31 | PC.NURSE ---
Video monitoring established, admission fax sent x3. Pt. on camera 36.
[2024-08-17 22:32] LABS: Ovalocytes 1+ (5-14) /OIF; Smudge Cells PRESENT
[2024-08-17] MEDS: Famotidine 20 MG TABLET 40 MG PO (22:40)
[2024-08-17] MEDS: Atorvastatin Calcium 80 MG TABLET PO (22:40)
[2024-08-17] MEDS: QUEtiapine Fumarate 25 MG TABLET PO (22:40)
[2024-08-17] MEDS: Mirtazapine 15 MG TABLET PO (22:40)
--- NOTE | 2024-08-17 22:52 | MHC.EDTECH ---
Patient inc therefore patient changed and repositioned
--- NOTE | 2024-08-17 23:43 | PC.NURSE ---
Addendum entered by Daya Marcos RN 08/18/24 05:53: pt rested well throughout the night in no notable distress. attempted to take pts vital signs this morning pt refusing. Original Note: assumed care for pt at this time. Pt alert and awake in bed pleasantly confused, resting well in no notable distress. pts needs met at this time. VMT in place. plan of care ongoing .
[2024-08-18 05:59] VITALS: BP 164/80; PULSE 91; RESP 18; TEMP 36.8; O2SAT 94
--- NOTE | 2024-08-18 06:04 | MHC.EDTECH ---
pt cleaned, linens changed and vitals taken.
--- NOTE | 2024-08-18 09:16 | PC.NURSE ---
PT at bedside
[2024-08-18 10:21] LABS: Influenza A PCR NEGATIVE (Negative); Influenza B PCR NEGATIVE (Negative); Resp Syncy Virus RNA Qual PCR NEGATIVE (Negative); SARS COV2 PCR INHOUSE NEGATIVE (Negative)
[2024-08-18 10:42] VITALS: BP 175/81; PULSE 85; RESP 18; TEMP 36.4; O2SAT 94
--- NOTE | 2024-08-18 10:48 | PC.NURSE ---
patient brought to OF bed 4, patient rr equal/non labored, camera intact/fall precautions intact, pt 1:1 feed- ground mech, honey thick/small sips no straws. pt [id number], vss, call youssef within reach, plan of care ongoing
--- NOTE | 2024-08-18 12:27 | MHC.CM.ED ---
Addendum entered by Janell Dobbs 08/18/24 12:54: Per [facility] and [facility], will need to submit PT eval to [facility] and [facility] will need to deny auth before they can accept under [facility]. Pamela made aware. Her will be on-site tomorrow 08/19 at 8am to help encourage patient to engage in PT eval. Physical therapy aware. Original Note: Patient remains in ER overflow. Physical therapy eval attempted. Patient declining to participate. Multiple facilities willing to offer a bed. Bed offers discussed with [id number], Pamela, via telephone. 1)[facility] 2) [facility]. Clinical updates sent to facilities. Continue to monitor for d/c needs.
[2024-08-18 14:00] VITALS: BP 151/78; PULSE 72; RESP 16; TEMP 36; O2SAT 96
--- NOTE | 2024-08-18 18:16 | PC.NURSE ---
patient awake and alert to self during the day today, as staff turned/positioned and changed linens pt was cantankerous and swearing at staff not wanting to participate in care. pt was incontinent of urine, denied pain/discomfort, plan of care ongoing
[2024-08-18 20:23] VITALS: BP 177/87; TEMP 36.6
--- NOTE | 2024-08-18 20:45 | PC.NURSE ---
patient very hostile and aggressive while changing urine soaked linens. attempted to kick and punch staff. refused to take meds stating that is grass and I will not eat it multiple attempts to reassure and calm patient were unsuccessful night meds not given
--- NOTE | 2024-08-18 20:59 | PHA.MEDREC ---
Addendum entered by Morro Carvalho [facility] 08/18/24 21:03: med rec reviewed Original Note: Pharmacy Consult ? Medication Reconciliation Pharmacy reviewed med rec done by nursing. Claims match what was confirmed and patient was just admitted 08/13-08/17 with us and discharge packet matches.
--- NOTE | 2024-08-19 00:56 | PC.NURSE ---
pt incont of urine, linens changed sharon care provided.
[2024-08-19 05:10] VITALS: BP 178/94; PULSE 94; RESP 20; TEMP 36.4; O2SAT 96
--- NOTE | 2024-08-19 05:11 | PC.NURSE ---
patient incont of urine, swearing at staff attempting to punch and kick while being cleaned and changed. sharon care provided and linens changed
--- NOTE | 2024-08-19 10:45 | MHC.CM.ED ---
Addendum entered by Janell Dobbs 08/19/24 11:03: Patient, son Lior and CHRIS Santiago aware and agreeable. Addendum entered by aJnell Dobbs 08/19/24 10:57: [facility] is able to offer a bed and is in the process of obtaining [facility] auth. Original Note: Patient remains in ER overflow. Physical therapy eval completed. Sent to facility choices: 1)[facility] 2) [facility] Continue to monitor for d/c needs.
--- NOTE | 2024-08-19 11:35 | PC.NURSE ---
Taken over care at this time. Pt. laying in bed and call youssef in reach. Pt. educated on plan of care. No s/s of pain or distress.
--- NOTE | 2024-08-19 12:38 | PC.NURSE ---
Pt. fed lunch with assistance from [employer], pt. ate 50% of his meal. Pt. then urinated all over self, pt. cleaned up and male purewick placed on pt. Pt. educated on catheter even though pt. has hx of dementia and has previously taken it off in the past. Pt. dee dee and ryan changed. Call youssef within reach. No s/s pain or distress.
[2024-08-19 13:31] VITALS: BP 127/58; PULSE 74; RESP 16; TEMP 36.3
--- NOTE | 2024-08-19 15:22 | MHC.CM.ED ---
Patient remains in ER overflow. Insurance auth has been obtained by [facility]. Patient can leave tomorrow, 08/20 at 10am. [facility] booked. Med nec with chart. Patient, [id number] Dana Santiago RN and Adriane CERDA aware. Continue to monitor for d/c needs.
[2024-08-19 18:52] VITALS: BP 162/77; PULSE 78; RESP 18; TEMP 36.7; O2SAT 96
[2024-08-19] MEDS: QUEtiapine Fumarate 25 MG TABLET PO (21:45)
[2024-08-19] MEDS: Famotidine 20 MG TABLET 40 MG PO (21:46)
[2024-08-19] MEDS: Mirtazapine 15 MG TABLET PO (21:46)
--- NOTE | 2024-08-19 21:51 | PC.NURSE ---
pt took meds except statin crushed in yogurt. drank half glascomplained about routine care stating staff are being mean. foam placed to coccyx for prevention. bony prominences cushioned with pillows. call youssef in reach, return demonstration performed although pateint forgteful. arousable to voice, oriented to person. believes we are in a shop owned by
--- NOTE | 2024-08-19 21:54 | PC.NURSE ---
pt took meds except statin crushed in yogurt. drank half glass of water before refusing. complained about routine care stating staff are being mean. foam placed to coccyx for prevention. bony prominences cushioned with pillows. call youssef in reach, return demonstration performed although pateint forgteful. arousable to voice, oriented to person. believes we are in a shop owned by [employer]. male purewick in place draining clear yellow urine.
[2024-08-19 22:03] VITALS: BP 131/70; PULSE 82; RESP 12; TEMP 37.3; O2SAT 95
--- NOTE | 2024-08-19 23:00 | MHC.EDTECH ---
this tech assumed care of pt @[id number]
[2024-08-20 02:38] VITALS: PULSE 83; RESP 17; O2SAT 96
[2024-08-20 06:34] VITALS: BP 137/62; PULSE 64; RESP 15; TEMP 36.3; O2SAT 92
--- NOTE | 2024-08-20 08:24 | MHC.CM.ED ---
Patient will d/c to [facility] via [facility] at 1030am. Patient, family, Maty CORONADO and Janie CERDA aware. Continue to monitor for d/c needs.
--- NOTE | 2024-08-20 08:25 | MHC.CM.ED ---
Patient will d[facility]c to [facility] via [facility] at 1030am. Patient, family, Maty CORONADO and Janie CERDA aware. Continue to monitor for d/c needs.
[2024-08-20 09:25] VITALS: BP 167/96; PULSE 86; RESP 16; TEMP 36.6; O2SAT 95
--- NOTE | 2024-08-20 10:18 | PC.NURSE ---
patient report given to Juanito and Iv[facility] smith
--- NOTE | 2024-08-20 10:19 | PC.NURSE ---
paperwork completed and faxed to [facility] room to dc camera
== END 2024-08-20 10:19 ==
PROVIDERS: Physician Assistant Medical; Emergency Provider Emergency Medicine; PCP Nurse Practitioner Family
DX: R90.82 White matter disease, unspecified (principal); F03.90 Unspecified dementia, unspecified severity, without behavioral disturbance, psychotic disturbance, mood disturbance, and anxiety; R62.7 Adult failure to thrive; I62.00 Nontraumatic subdural hemorrhage, unspecified; M62.81 Muscle weakness (generalized); I25.10 Atherosclerotic heart disease of native coronary artery without angina pectoris; Z03.818 Encounter for observation for suspected exposure to other biological agents ruled out; R26.81 Unsteadiness on feet; Z68.21 Body mass index [BMI] 21.0-21.9, adult; Z79.899 Other long term (current) drug therapy
CPT/HCPCS: 0241U; 36415; 80048; 80076; 82550; 83735; 85007; 85025; 85027; 97163; 99284; 99285